=== PATIENT | male | born 1970 | race Caucasian/White ===

== ENCOUNTER 2020-12-29 13:22 | Inpatient (IN) | payer SELFPAY ==
[~2020-12-29 13:22] MED LIST: Iopamidol-370 76% 500 ML 1 ML ONE
[2020-12-29] MEDS ORDERED: Magnesium 2 GM/50 ML BAG (IN WATER) ONE (13:28)
[2020-12-29] MEDS ORDERED: Albuterol Sulfate 1.25 MG/3 ML NEB ONE (13:31)
[2020-12-29] MEDS ORDERED: Rocuronium Bromide 10 MG/ML (10ML VIAL) ONE (13:38)
[2020-12-29] MEDS ORDERED: Ketamine 50 MG/ML (10ML VIAL) ONE (13:38)
[2020-12-29 13:50] LABS: #Basophils 0.1 thou/uL (0.0-0.2); #Lymphocytes 1.5 thou/uL (1.20-3.40); #Monocytes 0.8 thou/uL (0.11-0.59); #Neutrophils 8.8 thou/uL (1.40-6.50); %Basophils 0.6 % (0.0-1.0); %Eosinophils 0.2 % (0.0-10.0); %Lymphocytes 13.4 % (21.0-51.0); %Monocytes 7.3 % (0.0-10.0); %Neutrophils 78.4 % (42.0-75.0); Hemoglobin 14.2 g/dL (14.0-18.0); Mean Corpuscular HGB CONC 34.2 g/dL (32.0-36.0); Mean Corpuscular Hemoglobin 33.5 pg (27.0-31.0); Mean Corpuscular Volume 98.1 fL (78.0-98.0); Mean Platelet Volume 8.3 fL (7.4-10.4); Platelet Count 164 thou/uL (130-400); Red Blood Cell (RBC) Count 4.23 mill/uL (4.70-6.10); White Blood Cell (WBC) Count 11.2 thou/uL (4.8-10.8)
[2020-12-29] MEDS ORDERED: Fentanyl CADD 100 ML IV SCH ×2 (14:00→17:30)
[2020-12-29 14:04] LABS: Actual Bicarbonate (HCO3a) 11.7 mEq/L (22-28); Analyzer IN Cardio ER; Base Excess (BEa) -12.6 mEq/L (-2.0 to +3.0); Calcium, Ionized (arterial) 1.03 mmol/L (1.12-1.30); Carboxyhemoglobin (COHb) 3.6 gm% (0.0-3.0); Hemoglobin (Hb) 15.1 g/dL (14.0-18.0); O2 Tension (PaO2), arterial 220.4 mmHg (80.0-100.0); Potassium - ABG Lab 4.22 mmol/L (3.70-5.30)
[2020-12-29 14:05] LABS: ALV-art Gradient 462.225 mmHg (0-20); CO2 Tension 24.3 mmHg (35.0-45.0); Puncture Site LRA
[2020-12-29 14:06] LABS: ALT (SGPT) 149 U/L (8-55); AST (SGOT) 131 U/L (5-34); Albumin 3.8 g/dL (3.5-5.0); Alkaline Phosphatase 148 U/L (40-110); Anion Gap 24 mmol/L (10-20); BUN (Urea Nitrogen) 4 mg/dL (8.4-25.7); Bilirubin, Total 2.3 mg/dL (0.2-1.2); Calc. Creatinine Clearance 0 mL/min (70-130); Calcium 7.5 mg/dL (7.8-10.44); Carbon Dioxide 12 mmol/L (22-29); Chloride 76 mmol/L (98-107); Glucose 152 mg/dL (70-105); Potassium 4.3 mmol/L (3.5-5.1); Protein, Total 6.8 g/dL (6.0-8.3)
[2020-12-29 14:15] LABS: Sodium 108 mmol/L (136-145)
[2020-12-29 14:38] LABS: Bacteria/HPF None Seen HPF (None Seen); Bilirubin Negative (Negative); Blood, Urine 3+ (Negative); Clarity Clear (Clear); Glucose, Urine (Dipstick) Normal (Negative); Ketone, Urine 10 mg/dL (Negative); Leukocyte Negative Leu/uL (Negative); Nitrite Negative (Negative); Protein, Urine (Dipstick) 300 mg/dL (Neg-Trace); RBC/HPF 0-3 HPF (0-3); Specific Gravity, Urine 1.013 (1.002-1.036); Squamous Epithelial None Seen HPF (0-3); Urobilinogen Normal mg/dL (Less than 2); WBC/HPF 0-3 HPF (0-3)
[2020-12-29] MEDS ORDERED: cefTRIAXone\\ROCEPHIN 2 GM VIAL ONE (15:08)
[2020-12-29] MEDS ORDERED: Aspirin 300 MG Suppository ONE (15:08)
[2020-12-29] MEDS ORDERED: Azithromycin 500 MG VIAL ONE (15:08)
[2020-12-29 15:28] LABS: SARS-CoV-2 NAA Rapid Test Not Detected (NotDetected)
[2020-12-29] MEDS ORDERED: Propofol 1,000 MG/100 ML VIAL IV ONE (15:43)
[2020-12-29] MEDS ORDERED: Lorazepam 2 MG/ML VIAL ONE (17:04)
[2020-12-29] MEDS ORDERED: Sodium Chloride 3% 500 ML IVPB SCH (17:15)
[2020-12-29] MEDS ORDERED: Norepinephrine 8 MG/0.9% NS 250 ML IVPB SCH (17:15)
[2020-12-29] MEDS ORDERED: Morphine 2 MG/ML VIAL SLOW IVP PRN (17:30)
[2020-12-29] MEDS ORDERED: DISCONTINUE PREVIOUS NARCOTIC PAIN MEDICATIONS AND BENZODIAZEPINES FS SCH (17:30)
[2020-12-29] MEDS ORDERED: Fentanyl BOLUS 250 ML IVPB PRN (17:30)
[2020-12-29] MEDS ORDERED: Propofol BOLUS 1,000 MG/100 ML VIAL IV PRN (17:30)
[2020-12-29] MEDS ORDERED: Lorazepam 2 MG/ML VIAL SLOW IVP PRN (17:30)
[2020-12-29 17:31] LABS: Actual Bicarbonate (HCO3a) 13.6 mEq/L (22-28); Base Excess (BEa) -12.5 mEq/L (-2.0 to +3.0); CO2 Tension 32.5 mmHg (35.0-45.0); Calcium, Ionized (arterial) 0.91 mmol/L (1.12-1.30); Hemoglobin (Hb) 14.7 g/dL (14.0-18.0); O2 Tension (PaO2), arterial 103.2 mmHg (80.0-100.0); Potassium - ABG Lab 4.92 mmol/L (3.70-5.30)
[2020-12-29 17:32] LABS: pH, Arterial 7.24 (7.35-7.45)
[2020-12-29 17:34] LABS: ALV-art Gradient 212.675 mmHg (0-20); Puncture Site RRA
[2020-12-29] MEDS ORDERED: Sodium Bicarb 50 MEQ/50 ML Abboject 8.4% SYRINGE ONE (17:34)
[2020-12-29] MEDS: Hydrocortisone Sod Succ/PF 100 mg/2 ml Vial IVP SCH ×2 (17:38→23:41)
[2020-12-29] MEDS: Clindamycin/D5W 600 MG in Premix Bag 1 BAG IVPB SCH (17:40)
[2020-12-29] MEDS ORDERED: Ondansetron PF 4 MG/2 ML Vial IVP PRN (17:53)
[2020-12-29] MEDS ORDERED: Acetaminophen 650 MG Suppository PR PRN (17:53)
[2020-12-29] MEDS ORDERED: Albumin 5% 250 ML ONE (18:04)
[2020-12-29 18:06] LABS: Magnesium 1.8 mg/dL (1.6-2.6); Phosphorus 3.3 mg/dL (2.3-4.7)
[2020-12-29 18:08] LABS: Lactic Acid 4.5 mmol/L (0.5-2.2)
[2020-12-29] MEDS ORDERED: Furosemide 100 MG/10 ML VIAL SLOW IVP SCH (19:00)
[2020-12-29 21:15] LABS: Amphetamine Not Detected (NotDetected); Barbiturates Screen Not Detected (NotDetected); Benzodiazepine Screen Not Detected (NotDetected); Cocaine Metabolite Screen Not Detected (NotDetected); Medtox Control Line Valid? VALID (VALID); Medtox Reader # READER 1; Methadone Not Detected (NotDetected); Methamphetamine Not Detected (NotDetected); Opiate Screen Not Detected (NotDetected); Oxycodone Screen Not Detected (NotDetected); Phencyclidine (PCP) Not Detected (NotDetected); THC/Cannabinoid Screen Not Detected (NotDetected); Tricyclic Screen Not Detected (NotDetected)
[2020-12-29 21:24] LABS: Creatinine, Urine Less than 20.00 mg/dL (63-166); Sodium, Urine Less than 20 mmol/L (Not Available)
[2020-12-29 22:09] LABS: Anion Gap 21 mmol/L (10-20); BUN (Urea Nitrogen) 5 mg/dL (8.4-25.7); Calc. Creatinine Clearance 200 mL/min (70-130); Calcium 6.8 mg/dL (7.8-10.44); Carbon Dioxide 14 mmol/L (22-29); Chloride 83 mmol/L (98-107); Glucose 96 mg/dL (70-105); Potassium 4.5 mmol/L (3.5-5.1)
[2020-12-29] MEDS: Propofol 1,000 MG/100 ML VIAL IV PRN (22:43)
[2020-12-29 22:46] LABS: Sodium 113 mmol/L (136-145)
[2020-12-29] MEDS ORDERED: Lactated Ringer's 1,000 ML IV SCH (23:00)
[2020-12-29] MEDS ORDERED: Fentanyl CADD 100 ML ONE (23:38)
[2020-12-30] MEDS: Clindamycin/D5W 600 MG in Premix Bag 1 BAG IVPB SCH ×3 (01:16→17:33)
[2020-12-30 01:45] LABS: Chloride 89 mmol/L (98-107); Potassium 4.2 mmol/L (3.5-5.1); Sodium 121 mmol/L (136-145)
[2020-12-30 01:46] LABS: Calcium 7.5 mg/dL (7.8-10.44); Glucose 100 mg/dL (70-105)
[2020-12-30 01:48] LABS: Anion Gap 21 mmol/L (10-20); Carbon Dioxide 15 mmol/L (22-29)
[2020-12-30 01:50] LABS: BUN (Urea Nitrogen) 6 mg/dL (8.4-25.7); Calc. Creatinine Clearance 198 mL/min (70-130)
[2020-12-30] MEDS ORDERED: Sodium Chloride 0.45% 1,000 ML IV SCH (02:15)
[2020-12-30] MEDS: Propofol 1,000 MG/100 ML VIAL IV PRN (03:37)
[2020-12-30] MEDS: Hydrocortisone Sod Succ/PF 100 mg/2 ml Vial IVP SCH ×4 (05:12→23:06)
[2020-12-30 05:44] LABS: #Basophils 0.1 thou/uL (0.0-0.2); #Lymphocytes 0.6 thou/uL (1.20-3.40); #Monocytes 0.5 thou/uL (0.11-0.59); #Neutrophils 8.9 thou/uL (1.40-6.50); %Basophils 1.2 % (0.0-1.0); %Eosinophils 0.3 % (0.0-10.0); %Lymphocytes 5.5 % (21.0-51.0); %Monocytes 5.4 % (0.0-10.0); %Neutrophils 87.7 % (42.0-75.0); Hemoglobin 13.6 g/dL (14.0-18.0); Mean Corpuscular HGB CONC 35.5 g/dL (32.0-36.0); Mean Corpuscular Hemoglobin 34.7 pg (27.0-31.0); Mean Corpuscular Volume 97.7 fL (78.0-98.0); Mean Platelet Volume 9.9 fL (7.4-10.4); Platelet Count 150 thou/uL (130-400); RBC Distribution Width 13.3 % (11.5-14.5); Red Blood Cell (RBC) Count 3.91 mill/uL (4.70-6.10); White Blood Cell (WBC) Count 10.1 thou/uL (4.8-10.8)
[2020-12-30 06:06] LABS: Anion Gap 20 mmol/L (10-20); BUN (Urea Nitrogen) 6 mg/dL (8.4-25.7); Calc. Creatinine Clearance 184 mL/min (70-130); Calcium 7.7 mg/dL (7.8-10.44); Carbon Dioxide 18 mmol/L (22-29); Chloride 94 mmol/L (98-107); Glucose 95 mg/dL (70-105); Potassium 4.6 mmol/L (3.5-5.1); Sodium 127 mmol/L (136-145)
[2020-12-30 06:14] LABS: ALT (SGPT) 123 U/L (8-55); AST (SGOT) 99 U/L (5-34); Albumin 3.3 g/dL (3.5-5.0); Alkaline Phosphatase 110 U/L (40-110); Anion Gap 18 mmol/L (10-20); BUN (Urea Nitrogen) 6 mg/dL (8.4-25.7); Bilirubin, Total 1.8 mg/dL (0.2-1.2); Calc. Creatinine Clearance 186 mL/min (70-130); Calcium 7.7 mg/dL (7.8-10.44); Carbon Dioxide 18 mmol/L (22-29); Chloride 94 mmol/L (98-107); Globulin 2.8 g/dL (2.4-3.5); Glucose 94 mg/dL (70-105); Potassium 4.4 mmol/L (3.5-5.1); Protein, Total 6.1 g/dL (6.0-8.3); Sodium 126 mmol/L (136-145)
[2020-12-30] MEDS: Dextrose 5% in Water 1,000 ML IV SCH ×3 (06:15→20:45)
[2020-12-30 07:43] LABS: Actual Bicarbonate (HCO3a) 21.5 mEq/L (22-28); Base Excess (BEa) -0.8 mEq/L (-2.0 to +3.0); CO2 Tension 29.2 mmHg (35.0-45.0); Calcium, Ionized (arterial) 1.03 mmol/L (1.12-1.30); Carboxyhemoglobin (COHb) 0.7 gm% (0.0-3.0); O2 Tension (PaO2), arterial 71.8 mmHg (80.0-100.0); Potassium - ABG Lab 4.12 mmol/L (3.70-5.30); pH, Arterial 7.49 (7.35-7.45)
[2020-12-30] MEDS: Enoxaparin Sodium 40 MG/0.4 ML SYRINGE SC SCH (07:53)
[2020-12-30] MEDS: Pantoprazole 40 MG VIAL IVP SCH (07:53)
[2020-12-30 08:06] LABS: Puncture Site RRA
[2020-12-30 09:35] LABS: Chloride 96 mmol/L (98-107); Potassium 4.3 mmol/L (3.5-5.1); Sodium 131 mmol/L (136-145)
[2020-12-30 09:36] LABS: Glucose 158 mg/dL (70-105)
[2020-12-30 09:37] LABS: Anion Gap 20 mmol/L (10-20); Carbon Dioxide 19 mmol/L (22-29)
[2020-12-30 09:39] LABS: Calc. Creatinine Clearance 160 mL/min (70-130)
[2020-12-30 09:40] LABS: BUN (Urea Nitrogen) 8 mg/dL (8.4-25.7)
[2020-12-30] MEDS ORDERED: Diazepam 5 MG TAB PO SCH (13:30)
[2020-12-30] MEDS ORDERED: Thiamine HCl 200 MG/2 ML VIAL IM SCH (13:30)
[2020-12-30 13:32] LABS: Anion Gap 17 mmol/L (10-20); BUN (Urea Nitrogen) 8 mg/dL (8.4-25.7); Calc. Creatinine Clearance 141 mL/min (70-130); Calcium 8.1 mg/dL (7.8-10.44); Carbon Dioxide 24 mmol/L (22-29); Chloride 92 mmol/L (98-107); Glucose 174 mg/dL (70-105); Potassium 4.3 mmol/L (3.5-5.1); Sodium 129 mmol/L (136-145)
[2020-12-30] MEDS ORDERED: cefTRIAXone\\ROCEPHIN 1 GM in Sodium Chloride 0.9% 100 ML IVPB SCH (15:00)
[2020-12-30] MEDS: Folic Acid 1 MG TAB PO SCH (15:31)
[2020-12-30] MEDS: Multivit, Therapeutic 1 TAB PO SCH (15:31)
[2020-12-30 17:59] LABS: Anion Gap 12 mmol/L (10-20); BUN (Urea Nitrogen) 8 mg/dL (8.4-25.7); Calc. Creatinine Clearance 166 mL/min (70-130); Carbon Dioxide 25 mmol/L (22-29); Chloride 97 mmol/L (98-107); Glucose 142 mg/dL (70-105); Potassium 4.6 mmol/L (3.5-5.1); Sodium 129 mmol/L (136-145)
[2020-12-30] MEDS: Diazepam 5 MG TAB PO PRN (20:44)
[2020-12-30 21:55] LABS: Anion Gap 14 mmol/L (10-20); BUN (Urea Nitrogen) 9 mg/dL (8.4-25.7); Calc. Creatinine Clearance 162 mL/min (70-130); Calcium 7.9 mg/dL (7.8-10.44); Carbon Dioxide 25 mmol/L (22-29); Chloride 98 mmol/L (98-107); Glucose 163 mg/dL (70-105); Potassium 4.5 mmol/L (3.5-5.1); Sodium 132 mmol/L (136-145)
[2020-12-31] MEDS: Clindamycin/D5W 600 MG in Premix Bag 1 BAG IVPB SCH (01:15)
[2020-12-31] MEDS: Dextrose 5% in Water 1,000 ML IV SCH ×3 (01:16→14:18)
[2020-12-31] MEDS: Diazepam 5 MG TAB PO PRN ×4 (01:16→19:24)
[2020-12-31 03:41] LABS: Hemoglobin 13.4 g/dL (14.0-18.0); Mean Corpuscular HGB CONC 34.3 g/dL (32.0-36.0); Mean Corpuscular Hemoglobin 34.6 pg (27.0-31.0); Mean Platelet Volume 8.5 fL (7.4-10.4); Platelet Count 163 thou/uL (130-400); RBC Distribution Width 13.6 % (11.5-14.5); Red Blood Cell (RBC) Count 3.87 mill/uL (4.70-6.10); White Blood Cell (WBC) Count 17.9 thou/uL (4.8-10.8)
[2020-12-31 03:58] LABS: Anion Gap 15 mmol/L (10-20); BUN (Urea Nitrogen) 8 mg/dL (8.4-25.7); Calc. Creatinine Clearance 170 mL/min (70-130); Carbon Dioxide 21 mmol/L (22-29); Chloride 96 mmol/L (98-107); Glucose 144 mg/dL (70-105); Potassium 4.4 mmol/L (3.5-5.1); Sodium 128 mmol/L (136-145)
[2020-12-31 04:00] LABS: Lymphocytes 2 % (21-51); MDiff Complete? YES; Monocytes 7 % (0-10); Neutrophil 91 % (42-75); Platelet Morphology Comment Appears Adequate
[2020-12-31] MEDS: Hydrocortisone Sod Succ/PF 100 mg/2 ml Vial IVP SCH ×4 (05:01→23:28)
[2020-12-31 07:19] LABS: Anion Gap 14 mmol/L (10-20); BUN (Urea Nitrogen) 8 mg/dL (8.4-25.7); Calc. Creatinine Clearance 168 mL/min (70-130); Calcium 8.1 mg/dL (7.8-10.44); Carbon Dioxide 23 mmol/L (22-29); Chloride 98 mmol/L (98-107); Glucose 154 mg/dL (70-105); Potassium 4.6 mmol/L (3.5-5.1); Sodium 130 mmol/L (136-145)
[2020-12-31] MEDS: Pantoprazole 40 MG VIAL IVP SCH (08:39)
[2020-12-31] MEDS: Enoxaparin Sodium 40 MG/0.4 ML SYRINGE SC SCH (08:39)
[2020-12-31 09:46] LABS: Anion Gap 19 mmol/L (10-20); BUN (Urea Nitrogen) 8 mg/dL (8.4-25.7); Calc. Creatinine Clearance 152 mL/min (70-130); Carbon Dioxide 19 mmol/L (22-29); Chloride 97 mmol/L (98-107); Glucose 237 mg/dL (70-105); Potassium 4.2 mmol/L (3.5-5.1); Sodium 131 mmol/L (136-145)
[2020-12-31 13:20] VITALS: BMI 33.1
[2020-12-31 13:33] LABS: Anion Gap 19 mmol/L (10-20); BUN (Urea Nitrogen) 9 mg/dL (8.4-25.7); Calc. Creatinine Clearance 139 mL/min (70-130); Calcium 8.6 mg/dL (7.8-10.44); Carbon Dioxide 19 mmol/L (22-29); Chloride 98 mmol/L (98-107); Glucose 144 mg/dL (70-105); Potassium 5.1 mmol/L (3.5-5.1); Sodium 131 mmol/L (136-145)
[2020-12-31] MEDS: Folic Acid 1 MG TAB PO SCH (14:18)
[2020-12-31] MEDS: Multivit, Therapeutic 1 TAB PO SCH (14:18)
[2020-12-31] MEDS: Thiamine 100 MG TAB PO SCH (14:18)
[2020-12-31] MEDS ORDERED: Folic Acid 1 MG TAB PO SCH (15:00)
[2020-12-31] MEDS ORDERED: Multivit, Therapeutic 1 TAB PO SCH (15:00)
[2020-12-31 18:19] LABS: Anion Gap 16 mmol/L (10-20); BUN (Urea Nitrogen) 9 mg/dL (8.4-25.7); Calc. Creatinine Clearance 160 mL/min (70-130); Calcium 8.4 mg/dL (7.8-10.44); Carbon Dioxide 25 mmol/L (22-29); Chloride 95 mmol/L (98-107); Glucose 152 mg/dL (70-105); Potassium 4.2 mmol/L (3.5-5.1); Sodium 132 mmol/L (136-145)
[2020-12-31] MEDS: Cefdinir 300 MG CAP PO SCH (20:42)
[2020-12-31 22:36] LABS: Anion Gap 15 mmol/L (10-20); BUN (Urea Nitrogen) 9 mg/dL (8.4-25.7); Calc. Creatinine Clearance 144 mL/min (70-130); Calcium 8.2 mg/dL (7.8-10.44); Carbon Dioxide 26 mmol/L (22-29); Chloride 97 mmol/L (98-107); Glucose 188 mg/dL (70-105); Potassium 4.3 mmol/L (3.5-5.1); Sodium 134 mmol/L (136-145)
[2021-01-01 02:04] LABS: Anion Gap 17 mmol/L (10-20); BUN (Urea Nitrogen) 8 mg/dL (8.4-25.7); Calc. Creatinine Clearance 156 mL/min (70-130); Calcium 8.2 mg/dL (7.8-10.44); Carbon Dioxide 24 mmol/L (22-29); Chloride 96 mmol/L (98-107); Glucose 168 mg/dL (70-105); Potassium 3.7 mmol/L (3.5-5.1); Sodium 133 mmol/L (136-145)
[2021-01-01 03:49] LABS: #Lymphocytes 0.9 thou/uL (1.20-3.40); #Monocytes 0.8 thou/uL (0.11-0.59); #Neutrophils 11.1 thou/uL (1.40-6.50); %Basophils 0.1 % (0.0-1.0); %Lymphocytes 7.1 % (21.0-51.0); %Monocytes 6.4 % (0.0-10.0); %Neutrophils 86.4 % (42.0-75.0); Hemoglobin 12.7 g/dL (14.0-18.0); Mean Corpuscular HGB CONC 32.9 g/dL (32.0-36.0); Mean Corpuscular Hemoglobin 33.6 pg (27.0-31.0); Mean Platelet Volume 8.1 fL (7.4-10.4); Platelet Count 161 thou/uL (130-400); RBC Distribution Width 13.5 % (11.5-14.5); Red Blood Cell (RBC) Count 3.77 mill/uL (4.70-6.10); White Blood Cell (WBC) Count 12.9 thou/uL (4.8-10.8)
[2021-01-01 04:01] LABS: Anion Gap 13 mmol/L (10-20); BUN (Urea Nitrogen) 8 mg/dL (8.4-25.7); Calc. Creatinine Clearance 166 mL/min (70-130); Calcium 8.1 mg/dL (7.8-10.44); Carbon Dioxide 28 mmol/L (22-29); Chloride 96 mmol/L (98-107); Glucose 146 mg/dL (70-105); Potassium 3.8 mmol/L (3.5-5.1); Sodium 133 mmol/L (136-145)
[2021-01-01] MEDS: Dextrose 5% in Water 1,000 ML IV SCH (04:08)
[2021-01-01] MEDS: Hydrocortisone Sod Succ/PF 100 mg/2 ml Vial IVP SCH ×2 (05:01→20:13)
[2021-01-01 07:56] LABS: Anion Gap 14 mmol/L (10-20); BUN (Urea Nitrogen) 7 mg/dL (8.4-25.7); Calc. Creatinine Clearance 169 mL/min (70-130); Calcium 8.4 mg/dL (7.8-10.44); Carbon Dioxide 28 mmol/L (22-29); Chloride 96 mmol/L (98-107); Glucose 142 mg/dL (70-105); Potassium 4.1 mmol/L (3.5-5.1); Sodium 134 mmol/L (136-145)
[2021-01-01] MEDS: Enoxaparin Sodium 40 MG/0.4 ML SYRINGE SC SCH (08:42)
[2021-01-01] MEDS: Cefdinir 300 MG CAP PO SCH ×2 (08:42→20:13)
[2021-01-01] MEDS: Pantoprazole 40 MG VIAL IVP SCH (08:42)
[2021-01-01 09:40] LABS: Calcium 8.3 mg/dL (7.8-10.44); Chloride 97 mmol/L (98-107); Potassium 3.6 mmol/L (3.5-5.1); Sodium 135 mmol/L (136-145)
[2021-01-01 09:41] LABS: Glucose 219 mg/dL (70-105)
[2021-01-01 09:42] LABS: Anion Gap 16 mmol/L (10-20); Carbon Dioxide 26 mmol/L (22-29)
[2021-01-01 09:44] LABS: Calc. Creatinine Clearance 158 mL/min (70-130)
[2021-01-01 09:45] LABS: BUN (Urea Nitrogen) 8 mg/dL (8.4-25.7)
[2021-01-01] MEDS ORDERED: Hydrocortisone Sod Succ/PF 100 mg/2 ml Vial IVP SCH ×2 (12:00→21:00)
[2021-01-01] MEDS: Folic Acid 1 MG TAB PO SCH (15:20)
[2021-01-01] MEDS: Thiamine 100 MG TAB PO SCH (15:21)
[2021-01-01] MEDS: Multivit, Therapeutic 1 TAB PO SCH (15:21)
[2021-01-02 05:55] LABS: #Lymphocytes 2.7 thou/uL (1.20-3.40); #Neutrophils 7.4 thou/uL (1.40-6.50); %Basophils 0.4 % (0.0-1.0); %Eosinophils 0.3 % (0.0-10.0); %Lymphocytes 24.1 % (21.0-51.0); %Neutrophils 66.3 % (42.0-75.0); Hemoglobin 13.2 g/dL (14.0-18.0); Mean Corpuscular HGB CONC 31.4 g/dL (32.0-36.0); Mean Corpuscular Hemoglobin 32.3 pg (27.0-31.0); Mean Platelet Volume 8.3 fL (7.4-10.4); Platelet Count 169 thou/uL (130-400); RBC Distribution Width 13.5 % (11.5-14.5); Red Blood Cell (RBC) Count 4.08 mill/uL (4.70-6.10); White Blood Cell (WBC) Count 11.2 thou/uL (4.8-10.8)
[2021-01-02 06:16] LABS: Anion Gap 18 mmol/L (10-20); BUN (Urea Nitrogen) 10 mg/dL (8.4-25.7); Calc. Creatinine Clearance 174 mL/min (70-130); Calcium 8.2 mg/dL (7.8-10.44); Carbon Dioxide 23 mmol/L (22-29); Chloride 97 mmol/L (98-107); Glucose 108 mg/dL (70-105); Potassium 3.6 mmol/L (3.5-5.1); Sodium 134 mmol/L (136-145)
[2021-01-02 07:41] VITALS: BP 151/104; TEMP 97.5
[2021-01-02] MEDS: Hydrocortisone Sod Succ/PF 100 mg/2 ml Vial IVP SCH (08:07)
[2021-01-02] MEDS: Pantoprazole 40 MG VIAL IVP SCH (08:08)
[2021-01-02] MEDS: Enoxaparin Sodium 40 MG/0.4 ML SYRINGE SC SCH (08:08)
[2021-01-02] MEDS: Cefdinir 300 MG CAP PO SCH (08:08)
== END 2021-01-02 12:20 | disposition home or self-care (01) | DRG 208 ==
LOC: ERS 13:22 → CCU 14:00 → IMCU/EMU 12-30 13:09 → T4-A 01-01 18:51
PROVIDERS: ADMIT Internal Medicine; ATTEND Hospitalist
PROC: 5A1945Z Respiratory Ventilation, 24-96 Consecutive Hours (ICD-10-PCS; principal; 2020-12-29)
PROC: 3E033XZ Introduction of Vasopressor into Peripheral Vein, Percutaneous Approach (ICD-10-PCS; 2020-12-29)
PROC: 0BH17EZ Insertion of Endotracheal Airway into Trachea, Via Natural or Artificial Opening (ICD-10-PCS; 2020-12-29)
PROC: 0D9670Z Drainage of Stomach with Drainage Device, Via Natural or Artificial Opening (ICD-10-PCS; 2020-12-29)
DX: J96.01 Acute respiratory failure with hypoxia (principal); G93.41 Metabolic encephalopathy; E87.2 Acidosis; E87.1 Hypo-osmolality and hyponatremia; I42.9 Cardiomyopathy, unspecified; E27.40 Unspecified adrenocortical insufficiency; I95.9 Hypotension, unspecified; I51.7 Cardiomegaly; F10.10 Alcohol abuse, uncomplicated; E66.01 Morbid (severe) obesity due to excess calories; F17.210 Nicotine dependence, cigarettes, uncomplicated; K72.90 Hepatic failure, unspecified without coma; J44.9 Chronic obstructive pulmonary disease, unspecified; Z20.822 Contact with and (suspected) exposure to COVID-19; Z78.1 Physical restraint status; Z68.35 Body mass index [BMI] 35.0-35.9, adult
CPT/HCPCS: 0240U; 31500; 36415; 36416; 36600; 51702; 71045; 71275; 74177; 80048; 80053; 80306; 80307; 81003; 81015; 82140; 82533; 82553; 82570; 82805; 83605; 83735; 83880; 83930; 83935; 84100; 84300; 84443; 84484; 84550; 85025; 87040; 90471; 90732; 93005; 93306; 94002; 94003; 94640; 94660; 94760; 96365; 96366; 96367; 96368; 96375; 99292; C9113; G0009; J0456; J0696; J1650; J1720; J2060; J2704; J3010; J3411; J3475; J3490; J7131; J7620; P9045; Q9967

== ENCOUNTER 2021-08-31 15:47 | Observation (INO) | payer SELFPAY ==
[~2021-08-31 15:47] MED LIST changes: -Iopamidol-370 76% 500 ML 1 ML ONE; +Lorazepam 1 MG TAB PO PRN
[2021-08-31 16:41] LABS: Mean Corpuscular HGB CONC 34.4 g/dL (32.0-36.0); Mean Corpuscular Hemoglobin 38.7 pg (27.0-31.0); Mean Platelet Volume 8.7 fL (7.4-10.4); Platelet Count 127 thou/uL (130-400); RBC Distribution Width 13.6 % (11.5-14.5); Red Blood Cell (RBC) Count 3.88 mill/uL (4.70-6.10); White Blood Cell (WBC) Count 6.6 thou/uL (4.8-10.8)
[2021-08-31 16:58] LABS: #Basophils 0.1 thou/uL (0.0-0.2); #Eosinphils 0.1 thou/uL (0.0-0.7); #Lymphocytes 1.8 thou/uL (1.20-3.40); #Monocytes 0.6 thou/uL (0.11-0.59); %Eosinophils 0.9 % (0.0-10.0); %Lymphocytes 26.6 % (21.0-51.0); %Monocytes 9.3 % (0.0-10.0); %Neutrophils 61.2 % (42.0-75.0); MDiff Complete? YES; Macrocytosis SLIGHT = 6-15 cells (100X) (0-5/hpf); Platelet Morphology Comment Appears Decreased; Polychromasia SLIGHT = 2-3 cells (100X) (0-2/hpf); Target Cells SLIGHT = 2-5 cells (100X) (0-1/hpf)
[2021-08-31 17:02] LABS: ALT (SGPT) 134 U/L (8-55); AST (SGOT) 207 U/L (5-34); Albumin 3.3 g/dL (3.5-5.0); Alkaline Phosphatase 211 U/L (40-110); Anion Gap 18 mmol/L (10-20); BUN (Urea Nitrogen) Less than 4 mg/dL (8.4-25.7); Bilirubin, Total 2.2 mg/dL (0.2-1.2); Calc. Creatinine Clearance 0 mL/min (70-130); Calcium 8.3 mg/dL (7.8-10.44); Carbon Dioxide 27 mmol/L (22-29); Chloride 94 mmol/L (98-107); Globulin 3.6 g/dL (2.4-3.5); Glucose 162 mg/dL (70-105); Protein, Total 6.9 g/dL (6.0-8.3); Sodium 136 mmol/L (136-145)
[2021-08-31] MEDS ORDERED: methylPREDNISolone Sod Succ/PF 125 MG/2 ML VIAL ONE (17:06)
[2021-08-31] MEDS ORDERED: Albuterol Sulfate 2.5 mg/0.5 ml Neb ONE (17:17)
[2021-08-31] MEDS ORDERED: Albuterol Sulfate 2.5 mg/3 ml Neb ONE (17:17)
[2021-08-31 17:20] LABS: Potassium 2.9 mmol/L (3.5-5.1)
[2021-08-31] MEDS ORDERED: Potassium Chloride 20 MEQ TAB ONE (17:33)
[2021-08-31] MEDS ORDERED: Promethazine HCl 25 MG/ML VIAL ONE (17:42)
[2021-08-31 21:22] LABS: Troponin I 0.027 ng/mL (< 0.028)
[2021-08-31] MEDS ORDERED: Acetaminophen 325 MG TAB PO PRN (21:30)
[2021-08-31] MEDS ORDERED: Ondansetron PF 4 MG/2 ML Vial IVP PRN (21:30)
[2021-08-31] MEDS ORDERED: Ondansetron ODT 4 MG TAB SL PRN (21:30)
[2021-08-31 21:44] VITALS: BMI 29.5
[2021-08-31] MEDS: Potassium Chloride 20 MEQ in Premix Bag 1 BAG IVPB SCH ×2 (22:11→22:39)
[2021-08-31] MEDS ORDERED: Ondansetron ODT 4 MG TAB PO PRN (22:15)
[2021-08-31] MEDS ORDERED: Electrolyte Replacement Protocol 1 EACH FS PRN (22:15)
[2021-08-31] MEDS ORDERED: Lorazepam 2 MG/ML VIAL IM PRN (22:15)
[2021-08-31] MEDS ORDERED: Thiamine HCl 200 MG/2 ML VIAL SLOW IVP SCH (22:15)
[2021-08-31 23:35] LABS: #Lymphocytes 0.5 thou/uL (1.20-3.40); #Monocytes 0.1 thou/uL (0.11-0.59); #Neutrophils 4.5 thou/uL (1.40-6.50); %Basophils 0.8 % (0.0-1.0); %Eosinophils 0.3 % (0.0-10.0); %Lymphocytes 9.3 % (21.0-51.0); %Monocytes 0.9 % (0.0-10.0); %Neutrophils 88.7 % (42.0-75.0); Hemoglobin 14.2 g/dL (14.0-18.0); Mean Corpuscular HGB CONC 32.8 g/dL (32.0-36.0); Mean Corpuscular Hemoglobin 37.1 pg (27.0-31.0); Mean Platelet Volume 8.7 fL (7.4-10.4); Platelet Count 126 thou/uL (130-400); RBC Distribution Width 13.6 % (11.5-14.5); Red Blood Cell (RBC) Count 3.83 mill/uL (4.70-6.10); White Blood Cell (WBC) Count 5.1 thou/uL (4.8-10.8)
[2021-08-31 23:52] LABS: ALT (SGPT) 124 U/L (8-55); AST (SGOT) 177 U/L (5-34); Albumin 3.1 g/dL (3.5-5.0); Alkaline Phosphatase 200 U/L (40-110); Anion Gap 20 mmol/L (10-20); BUN (Urea Nitrogen) Less than 4 mg/dL (8.4-25.7); Bilirubin, Direct 1.6 mg/dL (0.1-0.3); Bilirubin, Total 2.4 mg/dL (0.2-1.2); Calc. Creatinine Clearance 164 mL/min (70-130); Carbon Dioxide 21 mmol/L (22-29); Chloride 97 mmol/L (98-107); Globulin 3.4 g/dL (2.4-3.5); Glucose 188 mg/dL (70-105); Magnesium 1.1 mg/dL (1.6-2.6); Phosphorus 3.5 mg/dL (2.3-4.7); Potassium 3.9 mmol/L (3.5-5.1); Protein, Total 6.5 g/dL (6.0-8.3); Sodium 134 mmol/L (136-145)
[2021-08-31 23:55] LABS: Troponin I 0.022 ng/mL (< 0.028)
[2021-09-01] MEDS: Lorazepam 1 MG TAB PO SCH ×4 (00:06→12:19)
[2021-09-01] MEDS ORDERED: Magnesium Sulfate 4 GM in Sodium Chloride 0.9% 250 ML 250 ML IVPB SCH (00:30)
[2021-09-01] MEDS: Magnesium 2 GM/50 ML 2 GM in Premix Bag 1 BAG IVPB SCH ×2 (01:36→03:03)
[2021-09-01] MEDS ORDERED: Azithromycin 500 MG in Sodium Chloride 0.9% 250 ML 250 ML IVPB SCH (03:00)
[2021-09-01 04:47] LABS: #Lymphocytes 0.8 thou/uL (1.20-3.40); #Monocytes 0.2 thou/uL (0.11-0.59); #Neutrophils 4.7 thou/uL (1.40-6.50); %Basophils 0.1 % (0.0-1.0); %Eosinophils 0.1 % (0.0-10.0); %Lymphocytes 14.4 % (21.0-51.0); %Monocytes 4.1 % (0.0-10.0); %Neutrophils 81.2 % (42.0-75.0); Mean Corpuscular HGB CONC 34.6 g/dL (32.0-36.0); Mean Corpuscular Hemoglobin 38.9 pg (27.0-31.0); Platelet Count 128 thou/uL (130-400); RBC Distribution Width 13.4 % (11.5-14.5); Red Blood Cell (RBC) Count 3.59 mill/uL (4.70-6.10); White Blood Cell (WBC) Count 5.8 thou/uL (4.8-10.8)
[2021-09-01 05:09] LABS: ALT (SGPT) 122 U/L (8-55); AST (SGOT) 157 U/L (5-34); Alkaline Phosphatase 195 U/L (40-110); Anion Gap 17 mmol/L (10-20); BUN (Urea Nitrogen) Less than 4 mg/dL (8.4-25.7); Bilirubin, Total 2.6 mg/dL (0.2-1.2); Calc. Creatinine Clearance 162 mL/min (70-130); Calcium 8.4 mg/dL (7.8-10.44); Carbon Dioxide 24 mmol/L (22-29); Chloride 97 mmol/L (98-107); Globulin 3.7 g/dL (2.4-3.5); Glucose 173 mg/dL (70-105); Potassium 4.2 mmol/L (3.5-5.1); Protein, Total 6.7 g/dL (6.0-8.3); Sodium 134 mmol/L (136-145)
[2021-09-01] MEDS ORDERED: Magnesium 2 GM/50 ML 2 GM in Premix Bag 1 BAG IVPB SCH (05:15)
[2021-09-01] MEDS ORDERED: Multivit, Therapeutic 1 TAB PO SCH (09:00)
[2021-09-01] MEDS ORDERED: FLU VACC QS2021-22(6MOS UP)/PF 60 MCG/0.5 ML SYRINGE IM ONE (09:00)
[2021-09-01] MEDS ORDERED: Enoxaparin Sodium 40 MG/0.4 ML SYRINGE SC SCH (09:00)
[2021-09-01] MEDS ORDERED: Folic Acid 1 MG TAB PO SCH (09:00)
[2021-09-01] MEDS ORDERED: methylPREDNISolone Sod Succ 40 MG VIAL IVP SCH (09:00)
[2021-09-01] MEDS ORDERED: Furosemide 40 MG/4 ML VIAL SLOW IVP SCH (10:00)
[2021-09-01 11:30] LABS: SARS-CoV-2 PCR by NAA Not Detected (NotDetected)
[2021-09-01 13:24] VITALS: BP 123/75; TEMP 98.9
[2021-09-01] MEDS ORDERED: Lorazepam 1 MG TAB PO PRN (22:15)
[2021-09-02] MEDS ORDERED: Lorazepam 0.5 MG TAB PO SCH (06:00)
[2021-09-02] MEDS ORDERED: Lorazepam 1 MG TAB PO PRN (22:15)
[2021-09-03] MEDS ORDERED: Lorazepam 0.5 MG TAB PO PRN (06:00)
[2021-09-03] MEDS ORDERED: Thiamine 100 MG TAB PO SCH (09:00)
== END 2021-09-01 14:17 | disposition home or self-care (01) ==
LOC: ERS 15:47 → 2NO 20:24
PROVIDERS: ADMIT Student in an Organized Health Care Education/Training Program; ATTEND Internal Medicine
DX: J44.1 Chronic obstructive pulmonary disease with (acute) exacerbation (principal); F10.20 Alcohol dependence, uncomplicated; E87.6 Hypokalemia; R10.11 Right upper quadrant pain; Z20.822 Contact with and (suspected) exposure to COVID-19
CPT/HCPCS: 36415; 71045; 76705; 80053; 82248; 83735; 83880; 84100; 84484; 85025; 93005; 94640; 96365; 96366; 96367; 96372; 96375; 96376; G0378; J0456; J1650; J1940; J2405; J2550; J2920; J2930; J3411; J3475; J3480; J7050; J7611; J7620; U0003; U0005

== ENCOUNTER 2022-10-17 19:14 | Inpatient (IN) | payer OTHER, SELFPAY ==
[2022-10-17] MEDS ORDERED: LORazepam 2 MG/ML SYR.(CARPUJECT) ONE ×2 (19:46→22:23)
[2022-10-17 19:57] LABS: #Basophils 0.1 thou/uL (0.0-0.2); #Lymphocytes 1.4 thou/uL (1.20-3.40); #Monocytes 0.9 thou/uL (0.11-0.59); #Neutrophils 7.2 thou/uL (1.40-6.50); %Basophils 0.9 % (0.0-1.0); %Eosinophils 0.4 % (0.0-10.0); %Lymphocytes 14.4 % (21.0-51.0); %Monocytes 9.7 % (0.0-10.0); %Neutrophils 74.5 % (42.0-75.0); Hemoglobin 9.1 g/dL (14.0-18.0); Mean Corpuscular HGB CONC 34.2 g/dL (32.0-36.0); Mean Corpuscular Hemoglobin 39.7 pg (27.0-31.0); Mean Platelet Volume 9.9 fL (7.4-10.4); Platelet Count 111 10x3/uL (130-400); White Blood Cell (WBC) Count 9.6 10x3/uL (4.8-10.8)
[2022-10-17 20:17] LABS: ALT (SGPT) 50 U/L (8-55); AST (SGOT) 166 U/L (5-34); Albumin 2.8 g/dL (3.5-5.0); Alkaline Phosphatase 286 U/L (40-110); Anion Gap 14 mmol/L (10-20); BUN (Urea Nitrogen) 5 mg/dL (8.4-25.7); Bilirubin, Total 17.7 mg/dL (0.2-1.2); Calc. Creatinine Clearance 0 mL/min (70-130); Calcium 8.2 mg/dL (7.8-10.44); Carbon Dioxide 22 mmol/L (22-29); Chloride 99 mmol/L (98-107); Estimated GFR 113; Globulin 4.2 g/dL (2.4-3.5); Glucose 105 mg/dL (70-105); Lipase 27 U/L (8-78); Potassium 3.2 mmol/L (3.5-5.1); Sodium 132 mmol/L (136-145)
[2022-10-17] MEDS ORDERED: levETIRAcetam 500 MG/5 ML VIAL ONE ×2 (21:55→22:24)
[2022-10-17 22:01] LABS: INR-International Normal Ratio 1.6; PTT 34.4 sec (22.9-36.1); Prothrombin Time 19.9 sec (12.0-14.7)
[2022-10-17] MEDS ORDERED: Lorazepam 2 MG/ML VIAL SLOW IVP PRN (22:36)
[2022-10-17] MEDS ORDERED: Ondansetron PF 4 MG/2 ML Vial IVP PRN (22:45)
[2022-10-17] MEDS ORDERED: Ondansetron ODT 4 MG TAB SL PRN (22:45)
[2022-10-17] MEDS ORDERED: Acetaminophen 325 MG TAB PO PRN (22:45)
[2022-10-17] MEDS ORDERED: Lorazepam 1 MG TAB PO PRN (23:14)
[2022-10-17] MEDS ORDERED: Electrolyte Replacement Protocol 1 EACH FS SCH (23:15)
[2022-10-17] MEDS ORDERED: Potassium Chloride 20 MEQ TAB PO SCH (23:45)
[2022-10-17 23:47] LABS: Magnesium 1.3 mg/dL (1.6-2.6); Phosphorus 2.3 mg/dL (2.3-4.7)
[2022-10-18] MEDS: Lorazepam 1 MG TAB PO SCH ×4 (00:57→17:11)
[2022-10-18] MEDS: Thiamine HCl 200 MG/2 ML VIAL SLOW IVP SCH (01:09)
[2022-10-18] MEDS: Potassium Chloride 20 MEQ in Premix Bag 1 BAG IVPB SCH ×2 (01:10→03:35)
[2022-10-18 01:15] LABS: Amphetamine Not Detected (NotDetected); Barbiturates Screen Not Detected (NotDetected); Benzodiazepine Screen Detected (NotDetected); Cocaine Metabolite Screen Not Detected (NotDetected); Methadone Not Detected (NotDetected); Methamphetamine Not Detected (NotDetected); Opiate Screen Not Detected (NotDetected); Oxycodone Screen Not Detected (NotDetected); Phencyclidine (PCP) Not Detected (NotDetected); THC/Cannabinoid Screen Not Detected (NotDetected); Tricyclic Screen Not Detected (NotDetected)
[2022-10-18] MEDS ORDERED: Magnesium Sulfate In Water 4 GM in Premix Bag 1 BAG IVPB SCH (01:15)
[2022-10-18] MEDS ORDERED: Magnesium Sulfate 4 GM in Sodium Chloride 0.9% 250 ML 250 ML IVPB SCH (01:15)
[2022-10-18 07:45] LABS: Anion Gap 12 mmol/L (10-20); BUN (Urea Nitrogen) 5 mg/dL (8.4-25.7); Calc. Creatinine Clearance 202 mL/min (70-130); Calcium 8.1 mg/dL (7.8-10.44); Carbon Dioxide 23 mmol/L (22-29); Chloride 101 mmol/L (98-107); Estimated GFR 121; Glucose 72 mg/dL (70-105); Potassium 3.4 mmol/L (3.5-5.1); Sodium 133 mmol/L (136-145)
[2022-10-18 08:06] LABS: #Basophils 0.1 thou/uL (0.0-0.2); #Eosinphils 0.1 thou/uL (0.0-0.7); #Lymphocytes 1.7 thou/uL (1.20-3.40); #Monocytes 1.1 thou/uL (0.11-0.59); #Neutrophils 8.3 thou/uL (1.40-6.50); %Basophils 0.7 % (0.0-1.0); %Eosinophils 0.6 % (0.0-10.0); %Monocytes 9.5 % (0.0-10.0); %Neutrophils 74.2 % (42.0-75.0); Hemoglobin 9.5 g/dL (14.0-18.0); Mean Corpuscular HGB CONC 33.1 g/dL (32.0-36.0); Mean Corpuscular Hemoglobin 38.9 pg (27.0-31.0); Platelet Count 112 10x3/uL (130-400); RBC Distribution Width 13.1 % (11.5-14.5); Red Blood Cell (RBC) Count 2.43 mill/uL (4.70-6.10); White Blood Cell (WBC) Count 11.2 10x3/uL (4.8-10.8)
[2022-10-18 08:07] LABS: MDiff Complete? YES; Macrocytosis MODERATE=16-30 cells (100X) (0-5/hpf); Platelet Morphology Comment Appears Decreased; Polychromasia SLIGHT = 2-3 cells (100X) (0-2/hpf); Target Cells SLIGHT = 2-5 cells (100X) (0-1/hpf)
[2022-10-18] MEDS: Folic Acid 1 MG TAB PO SCH (08:29)
[2022-10-18] MEDS: levETIRAcetam 500 MG TAB PO SCH ×2 (08:29→20:30)
[2022-10-18] MEDS: Famotidine/PF 20 mg/2ml Vial SLOW IVP SCH ×2 (08:29→20:30)
[2022-10-18] MEDS: Multivit, Therapeutic 1 TAB PO SCH (08:29)
[2022-10-18 11:17] LABS: Syphilis Antibody Nonreactive (Nonreactive); Syphilis Antibody Index 0.05 S/CO (<1.00 Non-Reactive)
[2022-10-18 13:55] LABS: Potassium 3.1 mmol/L (3.5-5.1)
[2022-10-18] MEDS ORDERED: Potassium Chloride 20 MEQ TAB PO SCH (14:30)
[2022-10-19] MEDS: Thiamine HCl 200 MG/2 ML VIAL SLOW IVP SCH (00:02)
[2022-10-19] MEDS: Lorazepam 1 MG TAB PO SCH ×4 (00:07→17:06)
[2022-10-19] MEDS: Lorazepam 1 MG TAB PO PRN ×2 (02:48→08:27)
[2022-10-19 07:35] LABS: #Basophils 0.1 thou/uL (0.0-0.2); #Eosinphils 0.1 thou/uL (0.0-0.7); #Lymphocytes 1.9 thou/uL (1.20-3.40); #Monocytes 0.7 thou/uL (0.11-0.59); #Neutrophils 6.1 thou/uL (1.40-6.50); %Basophils 1.4 % (0.0-1.0); %Eosinophils 1.3 % (0.0-10.0); %Lymphocytes 20.6 % (21.0-51.0); %Monocytes 8.2 % (0.0-10.0); %Neutrophils 68.5 % (42.0-75.0); Hemoglobin 8.6 g/dL (14.0-18.0); Mean Corpuscular HGB CONC 32.5 g/dL (32.0-36.0); Mean Corpuscular Hemoglobin 38.5 pg (27.0-31.0); Mean Platelet Volume 9.3 fL (7.4-10.4); Platelet Count 123 10x3/uL (130-400); Red Blood Cell (RBC) Count 2.24 mill/uL (4.70-6.10); White Blood Cell (WBC) Count 8.9 10x3/uL (4.8-10.8)
[2022-10-19] MEDS: Multivit, Therapeutic 1 TAB PO SCH (08:27)
[2022-10-19] MEDS: levETIRAcetam 500 MG TAB PO SCH ×2 (08:27→20:25)
[2022-10-19] MEDS: Famotidine/PF 20 mg/2ml Vial SLOW IVP SCH ×2 (08:27→20:25)
[2022-10-19] MEDS: Folic Acid 1 MG TAB PO SCH (08:27)
[2022-10-19 08:28] LABS: ALT (SGPT) 39 U/L (8-55); AST (SGOT) 103 U/L (5-34); Albumin 2.4 g/dL (3.5-5.0); Alkaline Phosphatase 218 U/L (40-110); Anion Gap 14 mmol/L (10-20); BUN (Urea Nitrogen) 7 mg/dL (8.4-25.7); Bilirubin, Total 15.8 mg/dL (0.2-1.2); Calc. Creatinine Clearance 160 mL/min (70-130); Calcium 7.8 mg/dL (7.8-10.44); Carbon Dioxide 20 mmol/L (22-29); Chloride 103 mmol/L (98-107); Estimated GFR 111; Globulin 3.9 g/dL (2.4-3.5); Glucose 77 mg/dL (70-105); Magnesium 1.6 mg/dL (1.6-2.6); Phosphorus 2.8 mg/dL (2.3-4.7); Potassium 3.6 mmol/L (3.5-5.1); Protein, Total 6.3 g/dL (6.0-8.3); Sodium 133 mmol/L (136-145)
[2022-10-19] MEDS ORDERED: Magnesium 2 GM/50 ML(in water) 2 GM in Premix Bag 1 BAG IVPB SCH (09:00)
[2022-10-19] MEDS ORDERED: predniSONE 20 MG TAB PO SCH (18:45)
[2022-10-19] MEDS ORDERED: Azithromycin 500 MG in Sodium Chloride 0.9% 250 ML 250 ML IVPB SCH (18:45)
[2022-10-19] MEDS ORDERED: Azithromycin 250 MG TAB PO SCH (19:00)
[2022-10-19] MEDS: cefTRIAXone\\ROCEPHIN 1 GM in Sodium Chloride 0.9% 100 ML IVPB SCH (20:24)
[2022-10-19] MEDS: Lorazepam 0.5 MG TAB PO SCH (22:20)
[2022-10-19] MEDS ORDERED: Lorazepam 1 MG TAB PO PRN (23:14)
[2022-10-20] MEDS: Lorazepam 0.5 MG TAB PO SCH ×3 (05:16→18:18)
[2022-10-20 07:00] LABS: #Lymphocytes 0.7 thou/uL (1.20-3.40); #Monocytes 0.2 thou/uL (0.11-0.59); #Neutrophils 4.7 thou/uL (1.40-6.50); %Basophils 0.8 % (0.0-1.0); %Eosinophils 0.3 % (0.0-10.0); %Lymphocytes 12.3 % (21.0-51.0); %Monocytes 4.2 % (0.0-10.0); %Neutrophils 82.4 % (42.0-75.0); Hemoglobin 8.8 g/dL (14.0-18.0); Mean Corpuscular HGB CONC 33.6 g/dL (32.0-36.0); Mean Corpuscular Hemoglobin 39.7 pg (27.0-31.0); Mean Platelet Volume 9.5 fL (7.4-10.4); Platelet Count 118 10x3/uL (130-400); RBC Distribution Width 13.7 % (11.5-14.5); Red Blood Cell (RBC) Count 2.22 mill/uL (4.70-6.10); White Blood Cell (WBC) Count 5.7 10x3/uL (4.8-10.8)
[2022-10-20 07:25] LABS: Anion Gap 15 mmol/L (10-20); BUN (Urea Nitrogen) 7 mg/dL (8.4-25.7); Calc. Creatinine Clearance 176 mL/min (70-130); Calcium 7.9 mg/dL (7.8-10.44); Carbon Dioxide 20 mmol/L (22-29); Chloride 104 mmol/L (98-107); Estimated GFR 117; Glucose 126 mg/dL (70-105); Magnesium 1.7 mg/dL (1.6-2.6); Potassium 3.5 mmol/L (3.5-5.1); Sodium 135 mmol/L (136-145)
[2022-10-20] MEDS: predniSONE 50 MG TAB PO SCH (08:40)
[2022-10-20] MEDS: levETIRAcetam 500 MG TAB PO SCH ×2 (08:40→20:39)
[2022-10-20] MEDS: Multivit, Therapeutic 1 TAB PO SCH (08:40)
[2022-10-20] MEDS: Folic Acid 1 MG TAB PO SCH (08:40)
[2022-10-20] MEDS: Famotidine/PF 20 mg/2ml Vial SLOW IVP SCH ×2 (08:40→20:40)
[2022-10-20] MEDS ORDERED: Potassium Chloride 20 MEQ TAB PO SCH (09:00)
[2022-10-20] MEDS: Rifaximin 550 MG TAB PO SCH (20:39)
[2022-10-20] MEDS: cefTRIAXone\\ROCEPHIN 1 GM in Sodium Chloride 0.9% 100 ML IVPB SCH (20:39)
[2022-10-20] MEDS: Azithromycin 250 MG TAB PO SCH (20:39)
[2022-10-20] MEDS ORDERED: Thiamine 100 MG TAB PO SCH (21:00)
[2022-10-21] MEDS: Lorazepam 0.5 MG TAB PO PRN (02:12)
[2022-10-21 06:51] LABS: #Basophils 0.1 thou/uL (0.0-0.2); #Eosinphils 0.1 thou/uL (0.0-0.7); #Monocytes 0.9 thou/uL (0.11-0.59); #Neutrophils 7.7 thou/uL (1.40-6.50); %Basophils 0.5 % (0.0-1.0); %Eosinophils 0.8 % (0.0-10.0); %Lymphocytes 18.8 % (21.0-51.0); %Monocytes 8.6 % (0.0-10.0); %Neutrophils 71.3 % (42.0-75.0); Hemoglobin 8.9 g/dL (14.0-18.0); Mean Corpuscular HGB CONC 32.8 g/dL (32.0-36.0); Mean Corpuscular Hemoglobin 39.4 pg (27.0-31.0); Mean Platelet Volume 9.8 fL (7.4-10.4); Platelet Count 132 10x3/uL (130-400); RBC Distribution Width 13.8 % (11.5-14.5); Red Blood Cell (RBC) Count 2.27 mill/uL (4.70-6.10); White Blood Cell (WBC) Count 10.8 10x3/uL (4.8-10.8)
[2022-10-21 07:19] LABS: Anion Gap 12 mmol/L (10-20); BUN (Urea Nitrogen) 9 mg/dL (8.4-25.7); Calc. Creatinine Clearance 148 mL/min (70-130); Calcium 8.4 mg/dL (7.8-10.44); Carbon Dioxide 24 mmol/L (22-29); Chloride 105 mmol/L (98-107); Estimated GFR 110; Glucose 103 mg/dL (70-105); Magnesium 1.8 mg/dL (1.6-2.6); Potassium 3.3 mmol/L (3.5-5.1); Sodium 138 mmol/L (136-145)
[2022-10-21] MEDS: Famotidine/PF 20 mg/2ml Vial SLOW IVP SCH ×2 (08:55→20:17)
[2022-10-21] MEDS: predniSONE 50 MG TAB PO SCH (08:55)
[2022-10-21] MEDS: Rifaximin 550 MG TAB PO SCH ×2 (08:55→20:17)
[2022-10-21] MEDS: levETIRAcetam 500 MG TAB PO SCH ×2 (08:55→20:17)
[2022-10-21] MEDS: Multivit, Therapeutic 1 TAB PO SCH (08:55)
[2022-10-21] MEDS: Folic Acid 1 MG TAB PO SCH (08:55)
[2022-10-21] MEDS ORDERED: Potassium Chloride 20 MEQ TAB PO SCH (09:00)
[2022-10-21] MEDS ORDERED: Magnesium 2 GM/50 ML(in water) 2 GM in Premix Bag 1 BAG IVPB SCH (09:00)
[2022-10-21] MEDS: cefTRIAXone\\ROCEPHIN 1 GM in Sodium Chloride 0.9% 100 ML IVPB SCH (20:15)
[2022-10-21] MEDS: Azithromycin 250 MG TAB PO SCH (20:16)
[2022-10-22] MEDS: Lorazepam 0.5 MG TAB PO PRN ×3 (02:09→21:10)
[2022-10-22 05:30] LABS: #Basophils 0.1 thou/uL (0.0-0.2); #Eosinphils 0.1 thou/uL (0.0-0.7); #Monocytes 0.6 thou/uL (0.11-0.59); #Neutrophils 6.9 thou/uL (1.40-6.50); %Basophils 0.7 % (0.0-1.0); %Eosinophils 1.1 % (0.0-10.0); %Lymphocytes 20.9 % (21.0-51.0); %Monocytes 6.6 % (0.0-10.0); %Neutrophils 70.7 % (42.0-75.0); Hemoglobin 9.9 g/dL (14.0-18.0); Mean Corpuscular HGB CONC 33.2 g/dL (32.0-36.0); Mean Corpuscular Hemoglobin 39.9 pg (27.0-31.0); Mean Platelet Volume 9.7 fL (7.4-10.4); Platelet Count 133 10x3/uL (130-400); RBC Distribution Width 13.6 % (11.5-14.5); Red Blood Cell (RBC) Count 2.47 mill/uL (4.70-6.10); White Blood Cell (WBC) Count 9.7 10x3/uL (4.8-10.8)
[2022-10-22 05:49] LABS: Anion Gap 12 mmol/L (10-20); BUN (Urea Nitrogen) 7 mg/dL (8.4-25.7); Calc. Creatinine Clearance 146 mL/min (70-130); Calcium 8.1 mg/dL (7.8-10.44); Carbon Dioxide 25 mmol/L (22-29); Chloride 102 mmol/L (98-107); Estimated GFR 110; Glucose 82 mg/dL (70-105); Magnesium 1.8 mg/dL (1.6-2.6); Potassium 3.3 mmol/L (3.5-5.1); Sodium 136 mmol/L (136-145)
[2022-10-22] MEDS ORDERED: Magnesium 2 GM/50 ML(in water) 2 GM in Premix Bag 1 BAG IVPB SCH (06:00)
[2022-10-22] MEDS: Multivit, Therapeutic 1 TAB PO SCH (09:12)
[2022-10-22] MEDS: Folic Acid 1 MG TAB PO SCH (09:12)
[2022-10-22] MEDS: Rifaximin 550 MG TAB PO SCH ×2 (09:12→21:09)
[2022-10-22] MEDS: Famotidine/PF 20 mg/2ml Vial SLOW IVP SCH ×2 (09:12→21:09)
[2022-10-22] MEDS: levETIRAcetam 500 MG TAB PO SCH ×2 (09:13→21:10)
[2022-10-22] MEDS: predniSONE 50 MG TAB PO SCH (09:13)
[2022-10-22] MEDS ORDERED: Potassium Chloride 20 MEQ TAB PO SCH (10:00)
[2022-10-22] MEDS: cefTRIAXone\\ROCEPHIN 1 GM in Sodium Chloride 0.9% 100 ML IVPB SCH (21:09)
[2022-10-23] MEDS: Lorazepam 0.5 MG TAB PO PRN ×2 (03:49→21:02)
[2022-10-23 06:56] LABS: Hemoglobin 9.8 g/dL (14.0-18.0); Mean Corpuscular HGB CONC 33.4 g/dL (32.0-36.0); Mean Corpuscular Hemoglobin 39.5 pg (27.0-31.0); Mean Platelet Volume 9.6 fL (7.4-10.4); Platelet Count 124 10x3/uL (130-400); RBC Distribution Width 13.1 % (11.5-14.5); Red Blood Cell (RBC) Count 2.48 mill/uL (4.70-6.10); White Blood Cell (WBC) Count 7.9 10x3/uL (4.8-10.8)
[2022-10-23 07:10] LABS: Anion Gap 14 mmol/L (10-20); BUN (Urea Nitrogen) 8 mg/dL (8.4-25.7); Calc. Creatinine Clearance 151 mL/min (70-130); Calcium 7.9 mg/dL (7.8-10.44); Carbon Dioxide 21 mmol/L (22-29); Chloride 102 mmol/L (98-107); Estimated GFR 111; Glucose 80 mg/dL (70-105); Magnesium 1.8 mg/dL (1.6-2.6); Potassium 3.6 mmol/L (3.5-5.1); Sodium 133 mmol/L (136-145)
[2022-10-23 07:36] LABS: #Basophils 0.1 thou/uL (0.0-0.2); #Eosinphils 0.1 thou/uL (0.0-0.7); #Monocytes 0.6 thou/uL (0.11-0.59); %Basophils 1.1 % (0.0-1.0); %Eosinophils 1.7 % (0.0-10.0); %Lymphocytes 25.7 % (21.0-51.0); %Neutrophils 63.4 % (42.0-75.0)
[2022-10-23 07:37] LABS: MDiff Complete? YES; Macrocytosis MODERATE=16-30 cells (100X) (0-5/hpf); Platelet Morphology Comment Appears Decreased; Polychromasia SLIGHT = 2-3 cells (100X) (0-2/hpf)
[2022-10-23] MEDS ORDERED: Magnesium 2 GM/50 ML(in water) 2 GM in Premix Bag 1 BAG IVPB SCH (08:45)
[2022-10-23] MEDS: predniSONE 50 MG TAB PO SCH (08:57)
[2022-10-23] MEDS: Rifaximin 550 MG TAB PO SCH ×2 (08:57→21:02)
[2022-10-23] MEDS: Folic Acid 1 MG TAB PO SCH (08:58)
[2022-10-23] MEDS: levETIRAcetam 500 MG TAB PO SCH ×2 (08:58→21:02)
[2022-10-23] MEDS: Famotidine/PF 20 mg/2ml Vial SLOW IVP SCH ×2 (08:58→21:02)
[2022-10-23] MEDS: Multivit, Therapeutic 1 TAB PO SCH (08:58)
[2022-10-23] MEDS: cefTRIAXone\\ROCEPHIN 1 GM in Sodium Chloride 0.9% 100 ML IVPB SCH (21:01)
[2022-10-24 06:27] LABS: #Lymphocytes 1.5 thou/uL (1.20-3.40); #Monocytes 0.8 thou/uL (0.11-0.59); #Neutrophils 5.9 thou/uL (1.40-6.50); %Basophils 0.4 % (0.0-1.0); %Eosinophils 0.5 % (0.0-10.0); %Monocytes 9.6 % (0.0-10.0); %Neutrophils 71.5 % (42.0-75.0); Hemoglobin 10.4 g/dL (14.0-18.0); Mean Corpuscular HGB CONC 33.3 g/dL (32.0-36.0); Mean Corpuscular Hemoglobin 38.8 pg (27.0-31.0); Mean Platelet Volume 10.1 fL (7.4-10.4); Platelet Count 131 10x3/uL (130-400); Red Blood Cell (RBC) Count 2.67 mill/uL (4.70-6.10); White Blood Cell (WBC) Count 8.3 10x3/uL (4.8-10.8)
[2022-10-24 06:52] LABS: Anion Gap 11 mmol/L (10-20); BUN (Urea Nitrogen) 6 mg/dL (8.4-25.7); Calc. Creatinine Clearance 159 mL/min (70-130); Calcium 8.1 mg/dL (7.8-10.44); Carbon Dioxide 24 mmol/L (22-29); Chloride 102 mmol/L (98-107); Estimated GFR 113; Glucose 121 mg/dL (70-105); Sodium 133 mmol/L (136-145)
[2022-10-24] MEDS ORDERED: Magnesium 2 GM/50 ML(in water) 2 GM in Premix Bag 1 BAG IVPB SCH (08:00)
[2022-10-24] MEDS: Rifaximin 550 MG TAB PO SCH ×2 (08:38→20:28)
[2022-10-24] MEDS: Folic Acid 1 MG TAB PO SCH (08:38)
[2022-10-24] MEDS: levETIRAcetam 500 MG TAB PO SCH ×2 (08:38→20:28)
[2022-10-24] MEDS: predniSONE 50 MG TAB PO SCH (08:38)
[2022-10-24] MEDS: Multivit, Therapeutic 1 TAB PO SCH (08:38)
[2022-10-24] MEDS: Famotidine/PF 20 mg/2ml Vial SLOW IVP SCH ×2 (08:39→20:28)
[2022-10-24 15:16] VITALS: BMI 27.1
[2022-10-24] MEDS: cefTRIAXone\\ROCEPHIN 1 GM in Sodium Chloride 0.9% 100 ML IVPB SCH (20:27)
[2022-10-25 06:28] LABS: #Eosinphils 0.2 thou/uL (0.0-0.7); #Lymphocytes 2.4 thou/uL (1.20-3.40); #Monocytes 0.9 thou/uL (0.11-0.59); #Neutrophils 5.5 thou/uL (1.40-6.50); %Basophils 0.3 % (0.0-1.0); %Eosinophils 1.8 % (0.0-10.0); %Lymphocytes 26.6 % (21.0-51.0); %Monocytes 10.3 % (0.0-10.0); %Neutrophils 60.9 % (42.0-75.0); Hemoglobin 9.9 g/dL (14.0-18.0); Mean Corpuscular HGB CONC 33.7 g/dL (32.0-36.0); Mean Corpuscular Hemoglobin 39.5 pg (27.0-31.0); Mean Platelet Volume 9.7 fL (7.4-10.4); Platelet Count 143 10x3/uL (130-400); RBC Distribution Width 12.7 % (11.5-14.5); Red Blood Cell (RBC) Count 2.49 mill/uL (4.70-6.10)
[2022-10-25 06:46] LABS: Anion Gap 10 mmol/L (10-20); BUN (Urea Nitrogen) 7 mg/dL (8.4-25.7); Calc. Creatinine Clearance 162 mL/min (70-130); Calcium 8.1 mg/dL (7.8-10.44); Carbon Dioxide 24 mmol/L (22-29); Chloride 105 mmol/L (98-107); Estimated GFR 113; Glucose 82 mg/dL (70-105); Potassium 3.6 mmol/L (3.5-5.1); Sodium 135 mmol/L (136-145)
[2022-10-25] MEDS: predniSONE 50 MG TAB PO SCH (08:39)
[2022-10-25] MEDS: Rifaximin 550 MG TAB PO SCH ×2 (08:39→20:28)
[2022-10-25] MEDS: Famotidine/PF 20 mg/2ml Vial SLOW IVP SCH ×2 (08:39→20:28)
[2022-10-25] MEDS: Thiamine 100 MG TAB PO SCH ×3 (08:39→20:28)
[2022-10-25] MEDS: Multivit, Therapeutic 1 TAB PO SCH (08:39)
[2022-10-25] MEDS: Folic Acid 1 MG TAB PO SCH (08:39)
[2022-10-25] MEDS: levETIRAcetam 500 MG TAB PO SCH ×2 (08:39→20:28)
[2022-10-26 08:58] LABS: #Basophils 0.1 thou/uL (0.0-0.2); #Eosinphils 0.1 thou/uL (0.0-0.7); #Lymphocytes 2.5 thou/uL (1.20-3.40); #Monocytes 1.2 thou/uL (0.11-0.59); #Neutrophils 5.6 thou/uL (1.40-6.50); %Basophils 0.7 % (0.0-1.0); %Eosinophils 1.2 % (0.0-10.0); %Lymphocytes 26.1 % (21.0-51.0); %Monocytes 13.1 % (0.0-10.0); %Neutrophils 58.9 % (42.0-75.0); Hemoglobin 10.5 g/dL (14.0-18.0); Mean Corpuscular HGB CONC 32.9 g/dL (32.0-36.0); Mean Corpuscular Hemoglobin 38.7 pg (27.0-31.0); Mean Platelet Volume 9.6 fL (7.4-10.4); Platelet Count 158 10x3/uL (130-400); RBC Distribution Width 12.9 % (11.5-14.5); Red Blood Cell (RBC) Count 2.71 mill/uL (4.70-6.10); White Blood Cell (WBC) Count 9.4 10x3/uL (4.8-10.8)
[2022-10-26 09:09] LABS: Anion Gap 12 mmol/L (10-20); BUN (Urea Nitrogen) 8 mg/dL (8.4-25.7); Calc. Creatinine Clearance 136 mL/min (70-130); Calcium 8.3 mg/dL (7.8-10.44); Carbon Dioxide 25 mmol/L (22-29); Chloride 100 mmol/L (98-107); Estimated GFR 107; Glucose 72 mg/dL (70-105); Potassium 3.8 mmol/L (3.5-5.1); Sodium 133 mmol/L (136-145)
[2022-10-26] MEDS: Folic Acid 1 MG TAB PO SCH (09:28)
[2022-10-26] MEDS: Thiamine 100 MG TAB PO SCH ×2 (09:28→14:47)
[2022-10-26] MEDS: Multivit, Therapeutic 1 TAB PO SCH (09:28)
[2022-10-26] MEDS: Rifaximin 550 MG TAB PO SCH (09:28)
[2022-10-26] MEDS: Famotidine/PF 20 mg/2ml Vial SLOW IVP SCH (09:28)
[2022-10-26] MEDS: levETIRAcetam 500 MG TAB PO SCH (09:28)
[2022-10-26 12:06] VITALS: BP 99/54; TEMP 98.8
[2022-10-27] MEDS ORDERED: Thiamine 100 MG TAB PO SCH (12:00)
[2022-10-28] MEDS ORDERED: Thiamine 100 MG TAB PO SCH (15:00)
== END 2022-10-26 15:53 | disposition home or self-care (01) | DRG 85 ==
LOC: ERS 19:14 → CCU 22:33 → T4-B 10-18 16:00
PROVIDERS: ADMIT Student in an Organized Health Care Education/Training Program; ATTEND Hospitalist
DX: S06.5X0A Traumatic subdural hemorrhage without loss of consciousness, initial encounter (principal); G93.41 Metabolic encephalopathy; E51.2 Wernicke's encephalopathy; F10.239 Alcohol dependence with withdrawal, unspecified; J44.1 Chronic obstructive pulmonary disease with (acute) exacerbation; E87.1 Hypo-osmolality and hyponatremia; F14.10 Cocaine abuse, uncomplicated; F17.210 Nicotine dependence, cigarettes, uncomplicated; F10.229 Alcohol dependence with intoxication, unspecified; G31.2 Degeneration of nervous system due to alcohol; D53.1 Other megaloblastic anemias, not elsewhere classified; E87.6 Hypokalemia; K76.82 Hepatic encephalopathy; Z79.51 Long term (current) use of inhaled steroids; Z79.52 Long term (current) use of systemic steroids; Z79.899 Other long term (current) drug therapy; W01.198A Fall on same level from slipping, tripping and stumbling with subsequent striking against other object, initial encounter; Z59.00 Homelessness unspecified
CPT/HCPCS: 36415; 36416; 70450; 71045; 76705; 80048; 80053; 80306; 82140; 83690; 83735; 84100; 85025; 85610; 85730; 86780; 93005; 94760; 96374; 96375; 96376; J0696; J1650; J1953; J2060; J3411; J3475; J3480; J3490; J7512; S0028; U0003; U0005

== ENCOUNTER 2023-09-16 23:30 | Inpatient (IN) | payer OTHER, SELFPAY ==
[2023-09-17] MEDS ORDERED: Ondansetron PF 4 MG/2 ML Vial ONE (00:39)
[2023-09-17 00:53] LABS: #Basophils 0.1 thou/uL (0.0-0.2); #Neutrophils 11.3 thou/uL (1.40-6.50); %Basophils 0.6 % (0.0-1.0); %Eosinophils 0.1 % (0.0-10.0); %Lymphocytes 3.5 % (21.0-51.0); %Monocytes 7.8 % (0.0-10.0); %Neutrophils 87.3 % (42.0-75.0); Hematocrit 35.8 % (42.0-52.0); Mean Corpuscular HGB CONC 36.3 g/dL (32.0-36.0); Mean Corpuscular Hemoglobin 33.9 pg (27.0-31.0); Mean Corpuscular Volume 93.5 fl (78.0-98.0); Mean Platelet Volume 11.1 fL (7.4-10.4); Platelet Count 90 10x3/uL (130-400); RBC Distribution Width 14.3 % (11.5-14.5); Red Blood Cell (RBC) Count 3.83 mill/uL (4.70-6.10); White Blood Cell (WBC) Count 12.9 10x3/uL (4.8-10.8)
[2023-09-17 01:14] LABS: Anion Gap 22 mmol/L (10-20); BUN (Urea Nitrogen) 6 mg/dL (8.4-25.7); Bilirubin, Total 3.7 mg/dL (0.2-1.2); Calc. Creatinine Clearance 0 mL/min (70-130); Calcium 8.8 mg/dL (7.8-10.44); Carbon Dioxide 18 mmol/L (22-29); Chloride 90 mmol/L (98-107); Estimated GFR 109; Glucose 140 mg/dL (70-105); Potassium 3.6 mmol/L (3.5-5.1); Sodium 126 mmol/L (136-145)
[2023-09-17 01:15] LABS: ALT (SGPT) 48 U/L (8-55); AST (SGOT) 71 U/L (5-34); Albumin 3.8 g/dL (3.5-5.0); Alkaline Phosphatase 215 U/L (40-110); Globulin 4.2 g/dL (2.4-3.5); Lipase 10 U/L (8-78)
[2023-09-17 01:41] LABS: Troponin I Less than 0.010 ng/mL (< 0.028)
[2023-09-17 02:11] LABS: CAUTI Indications for Culture Pelvic or flank pain
[2023-09-17 02:17] LABS: Bilirubin Negative (Negative); Blood, Urine 2+ (Negative); Clarity Clear (Clear); Glucose, Urine (Dipstick) Normal (Negative); Ketone, Urine 20 mg/dL (Negative); Leukocyte Negative Leu/uL (Negative); Nitrite Negative (Negative); Protein, Urine (Dipstick) 200 mg/dL (Neg-Trace); RBC/HPF 0-3 HPF (0-3); Specific Gravity, Urine 1.013 (1.002-1.036); Squamous Epithelial 0-3 HPF (0-3); Urobilinogen 3 mg/dL (Less than 2); WBC/HPF 0-3 HPF (0-3)
[2023-09-17 02:34] LABS: Amphetamine Not Detected (NotDetected); Barbiturates Screen Not Detected (NotDetected); Benzodiazepine Screen Not Detected (NotDetected); Cocaine Metabolite Screen Not Detected (NotDetected); Methadone Not Detected (NotDetected); Methamphetamine Not Detected (NotDetected); Opiate Screen Not Detected (NotDetected); Oxycodone Screen Not Detected (NotDetected); Phencyclidine (PCP) Not Detected (NotDetected); THC/Cannabinoid Screen Not Detected (NotDetected); Tricyclic Screen Not Detected (NotDetected)
[2023-09-17] MEDS ORDERED: Vancomycin 1 GM/200 ML (FROZEN) BAG ONE (02:41)
[2023-09-17] MEDS ORDERED: Piperacillin/Tazobactam 4.5 GM VIAL ONE (02:41)
[2023-09-17] MEDS ORDERED: Sodium Chloride 0.9% 100 ML ONE (02:42)
[2023-09-17] MEDS ORDERED: Acetaminophen 500 MG TAB ONE (03:03)
[2023-09-17] MEDS ORDERED: Diazepam 10 MG/2 ML SYRINGE ONE (04:01)
[2023-09-17] MEDS ORDERED: LORazepam 2 MG/ML SYR.(CARPUJECT) ONE ×3 (04:03→07:01)
[2023-09-17] MEDS ORDERED: Ketamine In 0.9 % NaCl 50 MG/5 ML SYRINGE ONE (04:16)
[2023-09-17] MEDS ORDERED: Rocuronium Bromide 10 MG/ML (10ML VIAL) ONE (04:17)
[2023-09-17 04:20] LABS: SARS-CoV-2 NAA Rapid Test Not Detected (NotDetected)
[2023-09-17] MEDS ORDERED: Electrolyte Replacement Protocol 1 EACH FS SCH (04:30)
[2023-09-17] MEDS ORDERED: Furosemide 40 MG (4 mL) VIAL ONE (04:36)
[2023-09-17] MEDS ORDERED: Dexmedetomidine 400 MCG, Admixture Fee 1 EACH in Sodium Chloride 0.9% 96 ML IVPB SCH (04:45)
[2023-09-17 04:49] LABS: Actual Bicarbonate (HCO3a) 22.3 mEq/L (22-28); Base Excess (BEa) -5.1 mEq/L (-2.0 to +3.0); CO2 Tension 50.9 mmHg (35.0-45.0); Calcium, Ionized (arterial) 1.04 mmol/L (1.12-1.30); Carboxyhemoglobin (COHb) 1.6 gm% (0.0-3.0); Hematocrit-ABG 39 % (42.0-52.0); Hemoglobin (Hb) 13.2 g/dL (14.0-18.0); O2 Tension (PaO2), arterial 74.1 mmHg (80.0-100.0); Potassium - ABG Lab 3.11 mmol/L (3.70-5.30); pH, Arterial 7.259 (7.35-7.45)
[2023-09-17 04:51] LABS: ALV-art Gradient 218.775 mmHg (0-20); Puncture Site RBA
[2023-09-17 05:05] LABS: Magnesium 1.1 mg/dL (1.6-2.6)
[2023-09-17] MEDS ORDERED: Morphine 2 MG/ML VIAL SLOW IVP PRN (05:30)
[2023-09-17] MEDS ORDERED: Magnesium 2 GM/50 ML(in water) 2 GM in Premix 1 BAG IVPB SCH ×2 (05:30→06:30)
[2023-09-17] MEDS ORDERED: Fentanyl BOLUS 250 ML IVPB PRN (05:30)
[2023-09-17] MEDS ORDERED: DISCONTINUE PREVIOUS NARCOTIC PAIN MEDICATIONS AND BENZODIAZEPINES FS SCH (05:30)
[2023-09-17] MEDS ORDERED: Fentanyl CADD 100 ML IV SCH (05:30)
[2023-09-17] MEDS ORDERED: Ventilator Sedation Protocol 1 EACH FS SCH (05:30)
[2023-09-17 05:38] LABS: Hematocrit 34.9 % (42.0-52.0); Hemoglobin 12.8 g/dL (14.0-18.0); Manual Diff?? YES; Mean Corpuscular HGB CONC 36.7 g/dL (32.0-36.0); Mean Corpuscular Hemoglobin 34.8 pg (27.0-31.0); Mean Corpuscular Volume 94.8 fl (78.0-98.0); Mean Platelet Volume 11.3 fL (7.4-10.4); RBC Distribution Width 14.4 % (11.5-14.5); Red Blood Cell (RBC) Count 3.68 mill/uL (4.70-6.10); White Blood Cell (WBC) Count 11.9 10x3/uL (4.8-10.8)
[2023-09-17] MEDS ORDERED: Propofol 1,000 MG/100 ML VIAL IV ONE (05:42)
[2023-09-17 05:43] LABS: Delete Auto Diff?? YES; Platelet Count 84 10x3/uL (130-400)
[2023-09-17] MEDS: Lorazepam 2 MG/ML VIAL SLOW IVP PRN ×4 (05:45→18:00)
[2023-09-17] MEDS: Propofol 1,000 MG/100 ML VIAL IV PRN ×2 (05:47→12:20)
[2023-09-17] MEDS: Propofol BOLUS 1,000 MG/100 ML VIAL IV PRN ×6 (05:49→08:45)
[2023-09-17 05:54] LABS: Lactic Acid 2.5 mmol/L (0.5-2.2)
[2023-09-17] MEDS ORDERED: Magnesium 2 GM/50 ML BAG (IN WATER) ONE ×2 (05:57→06:59)
[2023-09-17] MEDS ORDERED: Ondansetron PF 4 MG/2 ML Vial IVP PRN (06:00)
[2023-09-17 06:17] LABS: Hemoglobin A1c 5.2 % (4.0-6.0)
[2023-09-17 06:19] LABS: Anion Gap 16 mmol/L (10-20); BUN (Urea Nitrogen) 7 mg/dL (8.4-25.7); Calc. Creatinine Clearance 175 mL/min (70-130); Calcium 7.8 mg/dL (7.8-10.44); Carbon Dioxide 21 mmol/L (22-29); Chloride 93 mmol/L (98-107); Estimated GFR 112; Glucose 143 mg/dL (70-105); Potassium 3.3 mmol/L (3.5-5.1); Sodium 127 mmol/L (136-145)
[2023-09-17 06:23] LABS: Anisocytosis SLIGHT = 6-15 cells HPF (0-5); Band 34 % (5-11); CellaVision Operator ID lab.sh2; Large Platelets 4.9 % (0-5); Lymphocytes 2 % (21-51); Macrocytosis SLIGHT = 6-15 cells HPF (0-5); Monocytes 5 % (0-10); Neutrophil 59 % (42-75); Platelet Adequacy Comment Platelets Decreased; Polychromasia MODERATE = 3-4 cells HPF (0-2); Smudge Cells 8.7 %; Total Cell Count 103
[2023-09-17] MEDS ORDERED: Electrolyte Replacement Protocol FS PRN (06:30)
[2023-09-17] MEDS ORDERED: Piperacillin/Tazobactam 3.375 GM in Sodium Chloride 0.9% 100 ML IVPB SCH (07:00)
[2023-09-17] MEDS ORDERED: Thiamine HCl 200 MG/2 ML VIAL ONE (07:01)
[2023-09-17] MEDS: Thiamine HCl 200 MG/2 ML VIAL SLOW IVP SCH (07:05)
[2023-09-17] MEDS ORDERED: Potassium Chloride 20 MEQ (100 mL) BAG ONE (07:41)
[2023-09-17] MEDS: Potassium Chloride 20 MEQ in Premix 1 BAG IVPB SCH ×2 (07:53→09:50)
[2023-09-17] MEDS ORDERED: Vancomycin (BATCH) 1.5 GM in Premix 1 BAG IVPB SCH (08:00)
[2023-09-17] MEDS: Ipratropium/Albuterol 3 ML NEB EZPAP SCH ×4 (09:01→23:54)
[2023-09-17] MEDS: Piperacillin/Tazobactam 3.375 GM in Sodium Chloride 0.9% 100 ML IVPB SCH ×2 (09:50→15:55)
[2023-09-17] MEDS: Multivit, Therapeutic 1 TAB PER TUBE SCH (09:50)
[2023-09-17] MEDS: Pantoprazole 40 MG VIAL IVP SCH (09:50)
[2023-09-17] MEDS: Folic Acid 1 MG TAB PER TUBE SCH (09:50)
[2023-09-17] MEDS ORDERED: Iopamidol-370 76% 500 ML MDV (1 ML CHARGE) ONE (11:50)
[2023-09-17] MEDS: Vancomycin (BATCH) 1.5 GM in Premix 1 BAG IVPB SCH ×2 (13:00→20:54)
[2023-09-17] MEDS: Furosemide 40 MG (4 mL) VIAL SLOW IVP SCH (13:35)
[2023-09-17] MEDS ORDERED: Dexmedetomidine In 0.9 % NaCl 100 ML IVPB SCH (13:45)
[2023-09-17 14:26] LABS: Actual Bicarbonate (HCO3v) 24.1 mEq/L (22-28); Base Excess 2.4 mEq/L (-2.0 to +3.0); Calcium, Ionized (venous) 0.95 mmol/L (1.16-1.32); Chloride (VBG) 97 mmol/L (98-106); Hematocrit-VBG 37 % (42.0-52.0); Hemoglobin (Hb) 12.7 g/dL (13.1-17.2); Potassium (VBG) 3.65 mmol/L (3.70-5.30); Sodium 131 mmol/L (133-146); pH (venous) 7.541 (7.32-7.43)
[2023-09-17 15:44] LABS: Potassium 3.4 mmol/L (3.5-5.1)
[2023-09-17] MEDS ORDERED: Glucagon 1 MG/ML KIT IM PRN (16:00)
[2023-09-17] MEDS ORDERED: Dextrose 5% in Water 1,000 ML IV PRN (16:00)
[2023-09-17] MEDS ORDERED: Dextrose 50% Abboject 50 ML SYRINGE IVP PRN (16:00)
[2023-09-17] MEDS ORDERED: HumaLOG 300 UNITS/3 ML VIAL SC PRN (16:00)
[2023-09-17] MEDS: Acetaminophen 325 MG TAB PO PRN (16:05)
[2023-09-17] MEDS: Dexmedetomidine 400 MCG, Admixture Fee 1 EACH in Sodium Chloride 0.9% 96 ML IVPB SCH ×2 (17:35→23:19)
[2023-09-18] MEDS: Piperacillin/Tazobactam 3.375 GM in Sodium Chloride 0.9% 100 ML IVPB SCH ×3 (00:48→15:40)
[2023-09-18] MEDS: Dexmedetomidine 400 MCG, Admixture Fee 1 EACH in Sodium Chloride 0.9% 96 ML IVPB SCH ×6 (03:32→22:03)
[2023-09-18] MEDS: Thiamine HCl 200 MG/2 ML VIAL SLOW IVP SCH (05:02)
[2023-09-18 05:46] LABS: Hematocrit 32.8 % (42.0-52.0); Hemoglobin 11.7 g/dL (14.0-18.0); Manual Diff?? YES; Mean Corpuscular HGB CONC 35.7 g/dL (32.0-36.0); Mean Corpuscular Hemoglobin 34.5 pg (27.0-31.0); Mean Corpuscular Volume 96.8 fl (78.0-98.0); Mean Platelet Volume 11.6 fL (7.4-10.4); Platelet Count 100 10x3/uL (130-400); RBC Distribution Width 14.9 % (11.5-14.5); Red Blood Cell (RBC) Count 3.39 mill/uL (4.70-6.10); White Blood Cell (WBC) Count 9.9 10x3/uL (4.8-10.8)
[2023-09-18] MEDS: Furosemide 40 MG (4 mL) VIAL SLOW IVP SCH ×2 (05:54→12:30)
[2023-09-18 05:58] LABS: Delete Auto Diff?? YES
[2023-09-18 06:07] LABS: Vancomycin, Trough 13.3 ug/mL
[2023-09-18 06:15] LABS: Phosphorus 2.2 mg/dL (2.3-4.7)
[2023-09-18 06:16] LABS: ALT (SGPT) 29 U/L (8-55); AST (SGOT) 42 U/L (5-34); Albumin 2.9 g/dL (3.5-5.0); Alkaline Phosphatase 135 U/L (40-110); Anion Gap 17 mmol/L (10-20); BUN (Urea Nitrogen) 12 mg/dL (8.4-25.7); Calc. Creatinine Clearance 151 mL/min (70-130); Calcium 8.1 mg/dL (7.8-10.44); Carbon Dioxide 21 mmol/L (22-29); Chloride 99 mmol/L (98-107); Estimated GFR 109; Globulin 3.6 g/dL (2.4-3.5); Glucose 110 mg/dL (70-105); Magnesium 1.8 mg/dL (1.6-2.6); Potassium 3.6 mmol/L (3.5-5.1); Protein, Total 6.5 g/dL (6.0-8.3); Sodium 133 mmol/L (136-145)
[2023-09-18 06:21] LABS: Band 28 % (5-11); CellaVision Operator ID LAB.CLH1; Hypochromia SLIGHT = 6-15 cells HPF (0-5); Large Platelets 2.9 % (0-5); Lymphocytes 4 % (21-51); Metamyelocyte 1 % (0-0); Monocytes 5 % (0-10); Neutrophil 62 % (42-75); Platelet Adequacy Comment Platelets Decreased; Poikilocytosis SLIGHT = 6-15 cells HPF (0-5); Polychromasia MODERATE = 3-4 cells HPF (0-2); Total Cell Count 102
[2023-09-18] MEDS: Vancomycin (BATCH) 1.5 GM in Premix 1 BAG IVPB SCH ×3 (06:39→12:30)
[2023-09-18] MEDS: Ipratropium/Albuterol 3 ML NEB EZPAP SCH ×4 (07:17→23:44)
[2023-09-18] MEDS: Lorazepam 2 MG/ML VIAL SLOW IVP PRN ×4 (07:20→23:45)
[2023-09-18] MEDS: Pantoprazole 40 MG VIAL IVP SCH (07:45)
[2023-09-18] MEDS: Acetaminophen 325 MG TAB PO PRN ×2 (07:45→12:30)
[2023-09-18] MEDS: Multivit, Therapeutic 1 TAB PER TUBE SCH (07:45)
[2023-09-18] MEDS: Folic Acid 1 MG TAB PER TUBE SCH (07:45)
[2023-09-18] MEDS ORDERED: Nicotine 21 MG PATCH TOP SCH (10:00)
[2023-09-18 14:30] LABS: HIV (1/2) Antibody/Antigen Non-Reactive (NonReactive); HIV 1/2 INDEX 0.33 S/CO (<1.00)
[2023-09-18] MEDS ORDERED: Magnesium 2 GM/50 ML(in water) 2 GM in Premix 1 BAG IVPB SCH (14:30)
[2023-09-18 15:51] LABS: Strep pneumo Urine Ag NEGATIVE (NEGATIVE)
[2023-09-19] MEDS: Thiamine HCl 200 MG/2 ML VIAL SLOW IVP SCH (03:34)
[2023-09-19] MEDS: Furosemide 40 MG (4 mL) VIAL SLOW IVP SCH ×2 (06:19→15:00)
[2023-09-19] MEDS: Dexmedetomidine 400 MCG, Admixture Fee 1 EACH in Sodium Chloride 0.9% 96 ML IVPB SCH ×2 (06:21→15:00)
[2023-09-19 07:05] LABS: Hematocrit 35.9 % (42.0-52.0); Hemoglobin 12.4 g/dL (14.0-18.0); Manual Diff?? YES; Mean Corpuscular HGB CONC 34.5 g/dL (32.0-36.0); Mean Corpuscular Hemoglobin 33.9 pg (27.0-31.0); Mean Corpuscular Volume 98.1 fl (78.0-98.0); Mean Platelet Volume 11.3 fL (7.4-10.4); Platelet Count 120 10x3/uL (130-400); RBC Distribution Width 14.9 % (11.5-14.5); Red Blood Cell (RBC) Count 3.66 mill/uL (4.70-6.10); White Blood Cell (WBC) Count 11.4 10x3/uL (4.8-10.8)
[2023-09-19 07:13] LABS: Delete Auto Diff?? YES
[2023-09-19 07:28] LABS: ALT (SGPT) 27 U/L (8-55); AST (SGOT) 43 U/L (5-34); Albumin 3.3 g/dL (3.5-5.0); Alkaline Phosphatase 147 U/L (40-110); Anion Gap 18 mmol/L (10-20); BUN (Urea Nitrogen) 13 mg/dL (8.4-25.7); Bilirubin, Total 2.5 mg/dL (0.2-1.2); Calc. Creatinine Clearance 155 mL/min (70-130); Calcium 8.7 mg/dL (7.8-10.44); Carbon Dioxide 28 mmol/L (22-29); Chloride 99 mmol/L (98-107); Estimated GFR 110; Globulin 3.9 g/dL (2.4-3.5); Glucose 127 mg/dL (70-105); Magnesium 1.9 mg/dL (1.6-2.6); Potassium 3.3 mmol/L (3.5-5.1); Protein, Total 7.2 g/dL (6.0-8.3); Sodium 142 mmol/L (136-145)
[2023-09-19] MEDS: Ipratropium/Albuterol 3 ML NEB EZPAP SCH (07:31)
[2023-09-19 08:00] LABS: Band 12 % (5-11); Lymphocytes 13 % (21-51); Monocytes 9 % (0-10); Neutrophil 65 % (42-75); Platelet Adequacy Comment Platelets Decreased; Polychromasia SLIGHT = 2-3 cells (100X) (0-2/hpf); Reactive Lymphocytes 1 % (0-10)
[2023-09-19] MEDS ORDERED: Magnesium 2 GM/50 ML(in water) 2 GM in Premix 1 BAG IVPB SCH (09:15)
[2023-09-19] MEDS ORDERED: DC Sedation Protocol FS ONE (10:48)
[2023-09-19] MEDS: Pantoprazole 40 MG VIAL IVP SCH (10:58)
[2023-09-19] MEDS: Potassium Chloride 20 MEQ in Premix 1 BAG IVPB SCH ×2 (10:59→12:30)
[2023-09-19] MEDS: Folic Acid 1 MG TAB PER TUBE SCH (11:00)
[2023-09-19] MEDS: Multivit, Therapeutic 1 TAB PER TUBE SCH (11:00)
[2023-09-19] MEDS: Piperacillin/Tazobactam 3.375 GM in Sodium Chloride 0.9% 100 ML IVPB SCH ×3 (11:04→16:15)
[2023-09-19] MEDS: Ipratropium/Albuterol 3 ML NEB NEB SCH ×3 (13:28→23:47)
[2023-09-19] MEDS: Acetaminophen 325 MG TAB PO PRN (16:15)
[2023-09-19 17:24] LABS: Potassium 2.9 mmol/L (3.5-5.1)
[2023-09-20] MEDS: Piperacillin/Tazobactam 3.375 GM in Sodium Chloride 0.9% 100 ML IVPB SCH ×4 (01:27→23:21)
[2023-09-20] MEDS: Melatonin 3 MG TAB PO PRN ×2 (01:39→20:33)
[2023-09-20] MEDS: Furosemide 40 MG (4 mL) VIAL SLOW IVP SCH ×2 (05:33→14:23)
[2023-09-20] MEDS: Dexmedetomidine 400 MCG, Admixture Fee 1 EACH in Sodium Chloride 0.9% 96 ML IVPB SCH (06:41)
[2023-09-20] MEDS: Ipratropium/Albuterol 3 ML NEB NEB SCH ×4 (07:02→23:43)
[2023-09-20 07:03] LABS: #Basophils 0.1 thou/uL (0.0-0.2); #Eosinphils 0.1 thou/uL (0.0-0.7); #Monocytes 1.3 thou/uL (0.11-0.59); #Neutrophils 5.8 thou/uL (1.40-6.50); %Basophils 0.7 % (0.0-1.0); %Monocytes 13.9 % (0.0-10.0); %Neutrophils 63.6 % (42.0-75.0); Hematocrit 32.5 % (42.0-52.0); Hemoglobin 11.4 g/dL (14.0-18.0); Mean Corpuscular HGB CONC 35.1 g/dL (32.0-36.0); Mean Platelet Volume 11.3 fL (7.4-10.4); Platelet Count 133 10x3/uL (130-400); RBC Distribution Width 14.7 % (11.5-14.5); Red Blood Cell (RBC) Count 3.35 mill/uL (4.70-6.10); White Blood Cell (WBC) Count 9.1 10x3/uL (4.8-10.8)
[2023-09-20 07:28] LABS: ALT (SGPT) 48 U/L (8-55); AST (SGOT) 113 U/L (5-34); Albumin 2.9 g/dL (3.5-5.0); Alkaline Phosphatase 198 U/L (40-110); Anion Gap 12 mmol/L (10-20); BUN (Urea Nitrogen) 10 mg/dL (8.4-25.7); Bilirubin, Total 3.2 mg/dL (0.2-1.2); Calc. Creatinine Clearance 158 mL/min (70-130); Calcium 8.2 mg/dL (7.8-10.44); Carbon Dioxide 31 mmol/L (22-29); Chloride 94 mmol/L (98-107); Estimated GFR 112; Globulin 3.6 g/dL (2.4-3.5); Glucose 114 mg/dL (70-105); Magnesium 1.5 mg/dL (1.6-2.6); Protein, Total 6.5 g/dL (6.0-8.3); Sodium 134 mmol/L (136-145)
[2023-09-20] MEDS ORDERED: Magnesium 2 GM/50 ML(in water) 2 GM in Premix 1 BAG IVPB SCH (07:30)
[2023-09-20 07:33] LABS: Potassium 2.6 mmol/L (3.5-5.1)
[2023-09-20] MEDS: Potassium Chloride 20 MEQ in Premix 1 BAG IVPB SCH ×4 (08:01→14:23)
[2023-09-20] MEDS: Multivit, Therapeutic 1 TAB PER TUBE SCH (08:11)
[2023-09-20] MEDS: Folic Acid 1 MG TAB PER TUBE SCH (08:11)
[2023-09-20] MEDS: Pantoprazole 40 MG VIAL IVP SCH (08:11)
[2023-09-20] MEDS: Enoxaparin 40 MG (0.4 mL) SYRINGE SC SCH (08:11)
[2023-09-20] MEDS: Thiamine 100 MG TAB PO SCH (08:11)
[2023-09-20] MEDS ORDERED: Electrolyte Replacement Protocol 1 EACH FS SCH (08:15)
[2023-09-20] MEDS: Acetaminophen 325 MG TAB PO PRN (20:33)
[2023-09-20] MEDS ORDERED: Potassium Chloride 20 MEQ TAB PO SCH (23:30)
[2023-09-21] MEDS ORDERED: Potassium Chloride 20 MEQ in Premix 1 BAG IVPB SCH
[2023-09-21 00:08] LABS: QuantiFERON-TB Gold Plus Negative (Negative)
[2023-09-21] MEDS: Furosemide 40 MG (4 mL) VIAL SLOW IVP SCH ×2 (05:39→14:05)
[2023-09-21 07:19] LABS: Magnesium 1.8 mg/dL (1.6-2.6)
[2023-09-21] MEDS: Ipratropium/Albuterol 3 ML NEB NEB SCH ×3 (07:20→19:47)
[2023-09-21] MEDS ORDERED: Magnesium 2 GM/50 ML(in water) 2 GM in Premix 1 BAG IVPB SCH (08:00)
[2023-09-21] MEDS: Piperacillin/Tazobactam 3.375 GM in Sodium Chloride 0.9% 100 ML IVPB SCH (08:22)
[2023-09-21] MEDS: Thiamine 100 MG TAB PO SCH (08:27)
[2023-09-21] MEDS: Multivit, Therapeutic 1 TAB PER TUBE SCH (08:27)
[2023-09-21] MEDS: Folic Acid 1 MG TAB PER TUBE SCH (08:27)
[2023-09-21] MEDS: Pantoprazole 40 MG VIAL IVP SCH (08:27)
[2023-09-21] MEDS: Enoxaparin 40 MG (0.4 mL) SYRINGE SC SCH (08:27)
[2023-09-21] MEDS: Amoxicillin/Potassium Clav 875 MG TAB PO SCH (19:47)
[2023-09-21 20:37] LABS: Mycoplasma pneumoniae IgG AB 1385 U/mL (0-99); Mycoplasma pneumoniae IgM AB 844 U/mL (0-769)
[2023-09-21 21:37] LABS: L.pneumophilia Abs <0.91 OD ratio (0.00-0.90)
[2023-09-21] MEDS: Acetaminophen 325 MG TAB PO PRN (21:43)
[2023-09-22] MEDS: Ipratropium/Albuterol 3 ML NEB NEB SCH ×4 (00:36→19:29)
[2023-09-22] MEDS: Furosemide 40 MG (4 mL) VIAL SLOW IVP SCH ×2 (05:27→13:20)
[2023-09-22 08:49] LABS: Hematocrit 35.6 % (42.0-52.0); Hemoglobin 12.2 g/dL (14.0-18.0); Manual Diff?? YES; Mean Corpuscular HGB CONC 34.3 g/dL (32.0-36.0); Mean Corpuscular Hemoglobin 32.7 pg (27.0-31.0); Mean Corpuscular Volume 95.4 fl (78.0-98.0); Mean Platelet Volume 11.2 fL (7.4-10.4); Platelet Count 227 10x3/uL (130-400); RBC Distribution Width 14.9 % (11.5-14.5); Red Blood Cell (RBC) Count 3.73 mill/uL (4.70-6.10); White Blood Cell (WBC) Count 8.5 10x3/uL (4.8-10.8)
[2023-09-22 08:58] LABS: Delete Auto Diff?? YES
[2023-09-22 09:10] LABS: Anion Gap 18 mmol/L (10-20); BUN (Urea Nitrogen) 13 mg/dL (8.4-25.7); Calc. Creatinine Clearance 134 mL/min (70-130); Calcium 8.8 mg/dL (7.8-10.44); Carbon Dioxide 26 mmol/L (22-29); Chloride 94 mmol/L (98-107); Estimated GFR 107; Glucose 151 mg/dL (70-105); Potassium 2.8 mmol/L (3.5-5.1); Sodium 135 mmol/L (136-145)
[2023-09-22] MEDS: Folic Acid 1 MG TAB PER TUBE SCH (09:12)
[2023-09-22] MEDS: Thiamine 100 MG TAB PO SCH (09:12)
[2023-09-22] MEDS: Amoxicillin/Potassium Clav 875 MG TAB PO SCH ×2 (09:12→20:48)
[2023-09-22] MEDS: Multivit, Therapeutic 1 TAB PER TUBE SCH (09:13)
[2023-09-22] MEDS: Pantoprazole 40 MG VIAL IVP SCH (09:13)
[2023-09-22] MEDS: Enoxaparin 40 MG (0.4 mL) SYRINGE SC SCH (09:13)
[2023-09-22 10:00] LABS: Band 2 % (5-11); Lymphocytes 28 % (21-51); Monocytes 5 % (0-10); Neutrophil 61 % (42-75); Reactive Lymphocytes 3 % (0-10)
[2023-09-22 10:01] LABS: Platelet Adequacy Comment Platelets Normal; Polychromasia SLIGHT = 2-3 cells (100X) (0-2/hpf)
[2023-09-22 13:06] VITALS: BMI 25.2
[2023-09-22] MEDS: Potassium Bicarbonate/Cit Ac 20 MEQ TAB PER TUBE SCH ×2 (13:20→15:44)
[2023-09-22] MEDS: Acetaminophen 325 MG TAB PO PRN (20:48)
[2023-09-23] MEDS: Ipratropium/Albuterol 3 ML NEB NEB SCH ×2 (02:57→07:18)
[2023-09-23] MEDS: Furosemide 40 MG (4 mL) VIAL SLOW IVP SCH (05:48)
[2023-09-23 07:18] VITALS: BP 116/71; TEMP 98.2
[2023-09-23] MEDS: Amoxicillin/Potassium Clav 875 MG TAB PO SCH (08:36)
[2023-09-23] MEDS: Pantoprazole 40 MG VIAL IVP SCH (08:36)
[2023-09-23] MEDS: Enoxaparin 40 MG (0.4 mL) SYRINGE SC SCH (08:36)
[2023-09-23] MEDS: Multivit, Therapeutic 1 TAB PER TUBE SCH (08:36)
[2023-09-23] MEDS: Folic Acid 1 MG TAB PER TUBE SCH (08:36)
[2023-09-23] MEDS: Thiamine 100 MG TAB PO SCH (08:36)
[2023-09-23 10:18] LABS: #Basophils 0.2 thou/uL (0.0-0.2); #Eosinphils 0.1 thou/uL (0.0-0.7); #Monocytes 1.1 thou/uL (0.11-0.59); #Neutrophils 6.6 thou/uL (1.40-6.50); %Basophils 1.8 % (0.0-1.0); %Eosinophils 0.8 % (0.0-10.0); %Lymphocytes 18.4 % (21.0-51.0); %Monocytes 10.3 % (0.0-10.0); %Neutrophils 64.2 % (42.0-75.0); Hematocrit 37.8 % (42.0-52.0); Hemoglobin 12.9 g/dL (14.0-18.0); Mean Corpuscular HGB CONC 34.1 g/dL (32.0-36.0); Mean Corpuscular Hemoglobin 33.2 pg (27.0-31.0); Mean Corpuscular Volume 97.2 fl (78.0-98.0); Mean Platelet Volume 11.1 fL (7.4-10.4); Platelet Count 314 10x3/uL (130-400); RBC Distribution Width 15.5 % (11.5-14.5); Red Blood Cell (RBC) Count 3.89 mill/uL (4.70-6.10); White Blood Cell (WBC) Count 10.2 10x3/uL (4.8-10.8)
[2023-09-23 10:37] LABS: Anion Gap 17 mmol/L (10-20); BUN (Urea Nitrogen) 17 mg/dL (8.4-25.7); Calc. Creatinine Clearance 98 mL/min (70-130); Carbon Dioxide 26 mmol/L (22-29); Chloride 93 mmol/L (98-107); Estimated GFR 87; Glucose 160 mg/dL (70-105); Potassium 2.8 mmol/L (3.5-5.1); Sodium 133 mmol/L (136-145)
== END 2023-09-23 11:05 | disposition left against medical advice (07) | DRG 871 ==
LOC: ERS 23:30 → ERHOLD 09-17 04:16 → CCU 09-17 08:52 → T4-A 09-20 14:07
PROVIDERS: ADMIT Internal Medicine; ATTEND Family Medicine
PROC: 5A1945Z Respiratory Ventilation, 24-96 Consecutive Hours (ICD-10-PCS; principal; 2023-09-17)
PROC: 0BH17EZ Insertion of Endotracheal Airway into Trachea, Via Natural or Artificial Opening (ICD-10-PCS; 2023-09-17)
PROC: 0D9670Z Drainage of Stomach with Drainage Device, Via Natural or Artificial Opening (ICD-10-PCS; 2023-09-17)
PROC: 4A033R1 Measurement of Arterial Saturation, Peripheral, Percutaneous Approach (ICD-10-PCS; 2023-09-17)
PROC: 3E03329 Introduction of Other Anti-infective into Peripheral Vein, Percutaneous Approach (ICD-10-PCS; 2023-09-17)
PROC: 5A09357 Assistance with Respiratory Ventilation, Less than 24 Consecutive Hours, Continuous Positive Airway Pressure (ICD-10-PCS; 2023-09-19)
DX: A41.9 Sepsis, unspecified organism (principal); G93.41 Metabolic encephalopathy; I50.23 Acute on chronic systolic (congestive) heart failure; J96.01 Acute respiratory failure with hypoxia; J96.02 Acute respiratory failure with hypercapnia; J69.0 Pneumonitis due to inhalation of food and vomit; I50.22 Chronic systolic (congestive) heart failure; J44.0 Chronic obstructive pulmonary disease with (acute) lower respiratory infection; E87.1 Hypo-osmolality and hyponatremia; R65.20 Severe sepsis without septic shock; F17.210 Nicotine dependence, cigarettes, uncomplicated; I45.10 Unspecified right bundle-branch block; D69.6 Thrombocytopenia, unspecified; F10.10 Alcohol abuse, uncomplicated; E83.42 Hypomagnesemia; I07.1 Rheumatic tricuspid insufficiency; E87.6 Hypokalemia; Z78.1 Physical restraint status; Z11.52 Encounter for screening for COVID-19; Z79.899 Other long term (current) drug therapy
CPT/HCPCS: 31500; 36415; 36600; 51702; 71045; 71275; 80048; 80053; 80202; 80306; 80307; 81001; 82805; 83036; 83605; 83690; 83735; 83880; 84100; 84484; 85025; 86480; 86713; 86850; 86900; 86901; 87040; 87070; 87077; 87081; 87116; 87149; 87205; 87206; 87389; 87449; 93005; 93306; 94003; 94640; 94660; 96361; 96365; 96367; 96374; 96375; 99292; C9113; J1650; J1940; J2060; J2405; J2543; J2704; J3010; J3360; J3370; J3370-JW; J3411; J3475; J3480; J3490; J7620; Q9967

== ENCOUNTER 2024-03-21 20:35 | Inpatient (IN) | payer OTHER, SELFPAY ==
[2024-03-21 22:56] LABS: #Basophils 0.21 10x3/uL (0.0-0.2); %Basophils 3.4 % (0.0-1.0); %Eosinophils 2.3 % (0.0-10.0); %Lymphocytes 50.8 % (21.0-51.0); %Monocytes 8.1 % (0.0-10.0); %Neutrophils 35.2 % (42.0-75.0); Hematocrit 39.5 % (42.0-52.0); Hemoglobin 14.1 g/dL (14.0-18.0); Mean Corpuscular HGB CONC 35.7 g/dL (32.0-36.0); Mean Corpuscular Hemoglobin 34.5 pg (27.0-31.0); Mean Corpuscular Volume 96.6 fL (78.0-98.0); Mean Platelet Volume 10.7 fL (7.4-10.4); Platelet Count 195 10x3/uL (130-400); RBC Distribution Width 13.4 % (11.5-14.5); Red Blood Cell (RBC) Count 4.09 mill/uL (4.70-6.10)
[2024-03-21 23:15] LABS: ALT (SGPT) 32 U/L (8-55); AST (SGOT) 59 U/L (5-34); Albumin 3.3 g/dL (3.5-5.0); Alkaline Phosphatase 193 U/L (40-110); Anion Gap 14 mmol/L (10-20); BUN (Urea Nitrogen) 4 mg/dL (8.4-25.7); Bilirubin, Total 0.7 mg/dL (0.2-1.2); Calc. Creatinine Clearance 0 mL/min (70-130); Calcium 8.4 mg/dL (7.8-10.44); Carbon Dioxide 21 mmol/L (22-29); Chloride 104 mmol/L (98-107); Estimated GFR 115; Glucose 83 mg/dL (70-105); Potassium 3.5 mmol/L (3.5-5.1); Protein, Total 7.3 g/dL (6.0-8.3); Sodium 135 mmol/L (136-145)
[2024-03-22 00:13] LABS: Magnesium 1.6 mg/dL (1.6-2.6)
[2024-03-22 00:16] LABS: Troponin I 0.021 ng/mL (< 0.028)
[2024-03-22] MEDS ORDERED: cefTRIAXone (ROCEPHIN) 2 GM VIAL ONE (01:00)
[2024-03-22] MEDS ORDERED: Azithromycin 500 MG VIAL ONE (01:00)
[2024-03-22] MEDS ORDERED: Aspirin Chewable 81 MG TAB ONE (01:00)
[2024-03-22 02:38] LABS: Lactic Acid 1.7 mmol/L (0.5-2.2)
[2024-03-22] MEDS ORDERED: Ondansetron ODT 4 MG TAB PO PRN (04:26)
[2024-03-22] MEDS ORDERED: Acetaminophen 650 MG Suppository PR PRN (04:26)
[2024-03-22] MEDS ORDERED: Acetaminophen 650 MG/20.3 ML UDCUP PO PRN (04:26)
[2024-03-22] MEDS ORDERED: Ondansetron PF 4 MG/2 ML Vial IVP PRN (04:26)
[2024-03-22] MEDS ORDERED: Ipratropium/Albuterol 3 ML NEB NEB PRN (05:21)
[2024-03-22] MEDS ORDERED: Furosemide 40 MG (4 mL) VIAL SLOW IVP SCH ×2 (05:30)
[2024-03-22 07:27] LABS: Bacteria/HPF None Seen HPF (None Seen); Bilirubin Negative (Negative); Blood, Urine Negative (Negative); Clarity Clear (Clear); Glucose, Urine (Dipstick) Normal (Negative); Ketone, Urine Negative (Negative); Leukocyte Negative Leu/uL (Negative); Nitrite Negative (Negative); Protein, Urine (Dipstick) Negative (Neg-Trace); RBC/HPF None Seen HPF (0-3); Specific Gravity, Urine 1.004 (1.002-1.036); Squamous Epithelial 0-3 HPF (0-3); Urobilinogen Normal mg/dL (Less than 2); WBC/HPF None Seen HPF (0-3)
[2024-03-22 07:33] LABS: Amphetamine Not Detected (NotDetected); Barbiturates Screen Not Detected (NotDetected); Benzodiazepine Screen Not Detected (NotDetected); Cocaine Metabolite Screen Not Detected (NotDetected); Methadone Not Detected (NotDetected); Methamphetamine Not Detected (NotDetected); Opiate Screen Not Detected (NotDetected); Oxycodone Screen Not Detected (NotDetected); Phencyclidine (PCP) Not Detected (NotDetected); THC/Cannabinoid Screen Not Detected (NotDetected); Tricyclic Screen Not Detected (NotDetected)
[2024-03-22] MEDS ORDERED: Enoxaparin 40 MG (0.4 mL) SYRINGE ONE (08:56)
[2024-03-22] MEDS ORDERED: Furosemide 40 MG (4 mL) VIAL ONE (08:56)
[2024-03-22] MEDS ORDERED: levETIRAcetam 500 MG TAB ONE (08:56)
[2024-03-22] MEDS: Enoxaparin 40 MG (0.4 mL) SYRINGE SC SCH (08:57)
[2024-03-22] MEDS: Furosemide 40 MG (4 mL) VIAL SLOW IVP SCH (08:57)
[2024-03-22] MEDS: levETIRAcetam 500 MG TAB PO SCH (08:58)
[2024-03-22 10:46] LABS: Bacteria/HPF None Seen HPF (None Seen); Bilirubin Negative (Negative); Blood, Urine Negative (Negative); CAUTI Indications for Culture < 2yrs of age; Clarity Clear (Clear); Glucose, Urine (Dipstick) Normal (Negative); Ketone, Urine Negative (Negative); Leukocyte Negative Leu/uL (Negative); Nitrite Negative (Negative); Protein, Urine (Dipstick) Negative (Neg-Trace); RBC/HPF 0-3 HPF (0-3); Specific Gravity, Urine 1.005 (1.002-1.036); Squamous Epithelial None Seen HPF (0-3); Urobilinogen Normal mg/dL (Less than 2); WBC/HPF None Seen HPF (0-3); pH, Urine 5.5 (5.0-9.0)
[2024-03-22 11:03] LABS: Urine Culture Reflex Yes Yes
[2024-03-22 11:11] LABS: Influenza A by NAA Not Detected (NotDetected); Influenza B by NAA Not Detected (NotDetected); SARS-CoV-2 NAA Rapid Test Not Detected (NotDetected)
[2024-03-22] MEDS ORDERED: Lorazepam 2 MG/ML VIAL IM PRN (14:21)
[2024-03-22] MEDS ORDERED: Electrolyte Replacement Protocol 1 EACH FS SCH (14:30)
[2024-03-22 14:38] VITALS: BMI 23.8
[2024-03-22] MEDS ORDERED: Lorazepam 1 MG TAB PO PRN (15:00)
[2024-03-22] MEDS: Multivit, Therapeutic 1 TAB PO SCH (15:09)
[2024-03-22] MEDS: Lorazepam 1 MG TAB PO SCH (15:09)
[2024-03-22] MEDS: Folic Acid 1 MG TAB PO SCH (15:09)
[2024-03-22] MEDS: Thiamine HCl 200 MG/2 ML VIAL SLOW IVP SCH (15:09)
[2024-03-22 17:48] LABS: Anion Gap 14 mmol/L (10-20); BUN (Urea Nitrogen) 8 mg/dL (8.4-25.7); Bilirubin, Direct 0.5 mg/dL (0.1-0.3); Calc. Creatinine Clearance 120 mL/min (70-130); Calcium 8.9 mg/dL (7.6-10.4); Carbon Dioxide 27 mmol/L (22-29); Chloride 101 mmol/L (98-107); Estimated GFR 104; Glucose 109 mg/dL (70-105); Potassium 3.8 mmol/L (3.5-5.1); Sodium 138 mmol/L (136-145)
[2024-03-22 18:56] LABS: ALT (SGPT) 34 U/L (8-55); AST (SGOT) 66 U/L (5-34); Albumin 3.5 g/dL (3.5-5.0); Alkaline Phosphatase 213 U/L (40-110); Magnesium 1.2 mg/dL (1.6-2.6); Phosphorus 2.9 mg/dL (2.3-4.7); Protein, Total 7.5 g/dL (6.0-8.3)
[2024-03-22] MEDS: Magnesium Sulfate In Water 4 GM in Premix 1 BAG IVPB SCH (21:35)
[2024-03-22] MEDS: Azithromycin 500 MG in Sodium Chloride 0.9% 250 ML 250 ML IVPB SCH (21:35)
[2024-03-22] MEDS: cefTRIAXone\\ROCEPHIN 1 GM in Sodium Chloride 0.9% 100 ML IVPB SCH (21:36)
[2024-03-23 05:55] LABS: #Basophils 0.11 10x3/uL (0.0-0.2); %Basophils 1.7 % (0.0-1.0); %Eosinophils 1.4 % (0.0-10.0); %Monocytes 11.5 % (0.0-10.0); %Neutrophils 62.1 % (42.0-75.0); Hematocrit 37.9 % (42.0-52.0); Hemoglobin 13.5 g/dL (14.0-18.0); Mean Corpuscular HGB CONC 35.6 g/dL (32.0-36.0); Mean Corpuscular Hemoglobin 35.1 pg (27.0-31.0); Mean Corpuscular Volume 98.4 fL (78.0-98.0); Platelet Count 170 10x3/uL (130-400); RBC Distribution Width 13.2 % (11.5-14.5); Red Blood Cell (RBC) Count 3.85 mill/uL (4.70-6.10)
[2024-03-23 06:19] LABS: Anion Gap 14 mmol/L (10-20); BUN (Urea Nitrogen) 7 mg/dL (8.4-25.7); Calc. Creatinine Clearance 146 mL/min (70-130); Calcium 8.6 mg/dL (7.8-10.44); Carbon Dioxide 24 mmol/L (22-29); Chloride 100 mmol/L (98-107); Estimated GFR 110; Glucose 84 mg/dL (70-105); Potassium 3.3 mmol/L (3.5-5.1); Sodium 135 mmol/L (136-145)
[2024-03-23 07:06] VITALS: BMI 23.8
[2024-03-23] MEDS: Potassium Chloride 20 MEQ TAB PO SCH (09:26)
[2024-03-23] MEDS: Multivit, Therapeutic 1 TAB PO SCH (09:27)
[2024-03-23] MEDS: Folic Acid 1 MG TAB PO SCH (09:27)
[2024-03-23] MEDS: Ipratropium/Albuterol 3 ML NEB NEB SCH ×3 (10:33→18:25)
[2024-03-23] MEDS: guaiFENesin ER 600 MG TAB PO SCH ×2 (11:03→20:11)
[2024-03-23] MEDS ORDERED: Lorazepam 1 MG TAB PO PRN (15:00)
[2024-03-24 05:09] LABS: Anion Gap 15 mmol/L (10-20); BUN (Urea Nitrogen) 7 mg/dL (8.4-25.7); Calc. Creatinine Clearance 153 mL/min (70-130); Carbon Dioxide 22 mmol/L (22-29); Chloride 103 mmol/L (98-107); Estimated GFR 111; Glucose 95 mg/dL (70-105); Potassium 3.6 mmol/L (3.5-5.1); Sodium 136 mmol/L (136-145)
[2024-03-24] MEDS: Amoxicillin/Potassium Clav 875 MG TAB PO SCH (20:29)
[2024-03-24] MEDS: Lorazepam 1 MG TAB PO PRN (20:29)
[2024-03-25] MEDS ORDERED: Lorazepam 0.5 MG TAB PO PRN (15:00)
[2024-03-25 16:07] VITALS: BP 130/74; TEMP 98.2
[2024-03-25] MEDS: Thiamine 100 MG TAB PO SCH (16:32)
== END 2024-03-25 19:35 | DRG 194 ==
LOC: ERS 20:35 → ERHOLD 03-22 01:11 → 2NO 03-22 13:17 → OBSVTOIN 03-24 15:05
PROVIDERS: ADMIT Student in an Organized Health Care Education/Training Program; ATTEND Family Medicine
DX: J18.9 Pneumonia, unspecified organism (principal); J44.0 Chronic obstructive pulmonary disease with (acute) lower respiratory infection; F17.210 Nicotine dependence, cigarettes, uncomplicated; F10.20 Alcohol dependence, uncomplicated; Z71.41 Alcohol abuse counseling and surveillance of alcoholic; Z71.6 Tobacco abuse counseling
CPT/HCPCS: 36415; 70450; 71045; 80048; 80053; 80306; 80307; 81001; 82248; 82550; 83605; 83735; 83880; 84100; 84145; 84443; 84484; 85025; 87040; 87086; 93005; 93306; 94640; 96372; 96375; 96376; 97139; G0378; J0456; J0696; J1650; J1940; J3411; J3475; J3490; J7050; J7620